=== PATIENT | male | born 1935 | race Caucasian/White ===

== ENCOUNTER 2017-10-12 17:52 | Inpatient (IN) | payer MEDICARE, OTHER, MEDICAID ==
[2017-10-12] MEDS: ONDANSETRON 4 MG INJ IV (21:23)
[2017-10-12] MEDS: HALOPERIDOL 5 MG INJ IM (21:49)
[2017-10-12 22:22] LABS: ADD MAN DIFF? NO
[2017-10-12 22:32] LABS: WHITE BLOOD COUNT 9.2 10^3/ul (4.8-10.8)
[2017-10-12 22:32] LABS: HEMATOCRIT 25.2 % (42.0-52.0); MEAN CORPUSCULAR HEMOGLOBIN 27.7 pg (29.0-33.0); MEAN CORPUSCULAR HGB CONC 35.7 g/dl (32.0-37.0); MEAN CORPUSCULAR VOLUME 77.5 fl (82.0-101.0); PLATELET COUNT 78 10^3/UL (140-415); RED BLOOD COUNT 3.25 10^6/ul (4.70-6.10); RED CELL DISTRIBUTION WIDTH 14.6 % (11.5-14.5)
[2017-10-12 22:33] LABS: ABNORMAL IP MESSAGE 1; POSITIVE DIFF @See below
[2017-10-12 22:45] LABS: INR 1.23; PROTIME 15.7 Sec (11.9-14.9); PT RATIO 1.2
[2017-10-12 22:46] LABS: ALANINE AMINOTRANSFERASE 50 IU/L (13-69); ALBUMIN 2.9 g/dl (3.3-4.9); ALBUMIN/GLOBULIN RATIO 0.72; ALKALINE PHOSPHATASE 315 IU/L (42-121); ANION GAP 14 (8-16); ASPARTATE AMINO TRANSFERASE 70 IU/L (15-46); BILIRUBIN,INDIRECT 0.9 mg/dl (0-1.1); BILIRUBIN,TOTAL 1.3 mg/dl (0.2-1.3); BLOOD UREA NITROGEN 48 mg/dl (7-20); CALCIUM 8.3 mg/dl (8.4-10.2); CARBON DIOXIDE 31 mmol/L (21-31); CHLORIDE 97 mmol/L (97-110); GLUCOSE 256 mg/dl (70-220); LIPASE 28 U/L (23-300); PARTIAL THROMBOPLASTIN TIME 34.9 Sec (25.0-35.0); SODIUM 137 mmol/L (135-144); TOTAL PROTEIN 6.9 g/dl (6.1-8.1)
[2017-10-12 22:57] LABS: TROPONIN-I 0.056 ng/ml (0.00-0.12)
[2017-10-12 23:31] LABS: ADD UMIC YES; UR ASCORBIC ACID NEGATIVE (NEGATIVE); UR BILIRUBIN (Dip) NEGATIVE (NEGATIVE); UR BLOOD (Dip) NEGATIVE (NEGATIVE); UR CLARITY CLEAR (CLEAR); UR COLOR YELLOW (YELLOW); UR GLUCOSE (Dip) 3+ mg/dL (NEGATIVE); UR KETONES (Dip) NEGATIVE (NEGATIVE); UR LEUKOCYTE ESTERASE (Dip) NEGATIVE Leu/ul (NEGATIVE); UR NITRITE (Dip) NEGATIVE (NEGATIVE); UR RBC 1 /HPF (0-5); UR TOTAL PROTEIN (Dip) 2+ mg/dl (NEGATIVE); UR UROBILINOGEN (Dip) 2+ mg/dL (NEGATIVE); UR WBC 6 /HPF (0-5)
[2017-10-13] MEDS ORDERED: NACL 0.9% 3 ML SYG IV (01:30)
[2017-10-13] MEDS ORDERED: HALOPERIDOL 5 MG INJ IV (01:30)
[2017-10-13] MEDS ORDERED: ONDANSETRON 4 MG INJ IV ×2 (01:30)
[2017-10-13] MEDS ORDERED: ACETAMINOPHEN 325 MG TAB PO (01:30)
[2017-10-13] MEDS ORDERED: GLUCOSE GEL 15 GRAM TUBE PO ×2 (02:00)
[2017-10-13] MEDS ORDERED: GLUCAGON 1 MG INJ IM (02:00)
[2017-10-13] MEDS ORDERED: GLUCOSE GEL 15 GRAM TUBE BUCCAL (02:00)
[2017-10-13] MEDS: ACCU-CHEK XX (02:11)
[2017-10-13] MEDS: LEVOFLOXACIN 250 MG TAB PO (02:23)
[2017-10-13] MEDS: PANTOPRAZOLE (EC) 40 MG TAB PO (06:00)
[2017-10-13] MEDS: LEVOTHYROXINE 125 MCG TAB PO (06:01)
[2017-10-13 06:07] LABS: ADD MAN DIFF? NO
[2017-10-13 06:46] LABS: WHITE BLOOD COUNT 8.1 10^3/ul (4.8-10.8)
[2017-10-13 06:46] LABS: ABNORMAL IP MESSAGE 1; HEMATOCRIT 22.9 % (42.0-52.0); HEMOGLOBIN 8.5 g/dl (14.0-18.0); MEAN CORPUSCULAR HEMOGLOBIN 28.5 pg (29.0-33.0); MEAN CORPUSCULAR HGB CONC 37.1 g/dl (32.0-37.0); MEAN CORPUSCULAR VOLUME 76.8 fl (82.0-101.0); MEAN PLATELET VOLUME 11.5 fl (7.4-10.4); PLATELET COUNT 78 10^3/UL (140-415); POSITIVE DIFF @See below; RED BLOOD COUNT 2.98 10^6/ul (4.70-6.10); RED CELL DISTRIBUTION WIDTH 14.4 % (11.5-14.5)
[2017-10-13 06:52] LABS: IRON 26 ug/dl (35-150)
[2017-10-13 06:54] LABS: ALANINE AMINOTRANSFERASE 45 IU/L (13-69); ALBUMIN 2.3 g/dl (3.3-4.9); ALBUMIN/GLOBULIN RATIO 0.62; ALKALINE PHOSPHATASE 233 IU/L (42-121); ANION GAP 14 (8-16); ASPARTATE AMINO TRANSFERASE 45 IU/L (15-46); BILIRUBIN,INDIRECT 0.9 mg/dl (0-1.1); BILIRUBIN,TOTAL 1.1 mg/dl (0.2-1.3); BLOOD UREA NITROGEN 54 mg/dl (7-20); CARBON DIOXIDE 32 mmol/L (21-31); CHLORIDE 97 mmol/L (97-110); CHOL/HDL RATIO 5.9 RATIO; CHOLESTEROL 89 mg/dl (100-200); CREATININE 3.86 mg/dl (0.61-1.24); GLUCOSE 207 mg/dl (70-220); HDL CHOLESTEROL 15 mg/dl (31-75); LDL CHOLESTEROL,CALCULATED 61 mg/dl; POTASSIUM 4.6 mmol/L (3.5-5.1); SODIUM 138 mmol/L (135-144); TRIGLYCERIDES 67 mg/dl (0-149)
[2017-10-13 07:01] LABS: % IRON SATURATION 18 % SAT (22-52); TOTAL IRON BINDING CAPACITY 142 ug/dl (241-421)
[2017-10-13 07:16] LABS: HEMOGLOBIN A1C 6.5 % (0-5.9)
[2017-10-13 07:28] LABS: HEPATITIS C VIRAL ANTIBODY NEGATIVE (NEGATIVE)
[2017-10-13 07:34] LABS: AMMONIA < 9 umol/l (9-30)
[2017-10-13] MEDS: SEVELAMER 400 MG TAB PO ×3 (08:15→17:21)
[2017-10-13] MEDS: INSULIN ASPART [NOVOLOG] 3 ML PEN SC ×4 (08:15→20:38)
[2017-10-13] MEDS ORDERED: ASPIRIN 81 MG TAB PO (09:00)
[2017-10-13] MEDS: ALLOPURINOL 100 MG TAB PO (12:12)
[2017-10-13] MEDS: CLOPIDOGREL 75 MG TAB PO (12:12)
[2017-10-13] MEDS: SOD FERRIC GLUC COMPLX 125 MG in SOD CHLORIDE 0.9% 100 ML IVPB (12:14)
[2017-10-13] MEDS: LINAGLIPTIN 5 MG TABLET PO (12:41)
[2017-10-13] MEDS: ASPIRIN 81 MG TAB PO (12:41)
[2017-10-13] MEDS: DUTASTERIDE 0.5 MG CAP PO (13:09)
[2017-10-13] MEDS: CEFEPIME 1GM/50 ML (PMX) 50 ML IVPB (13:19)
[2017-10-13] MEDS ORDERED: PENDING SANTYL ORDER FOR WOUND CARE XX (17:00)
[2017-10-13] MEDS: EPOETIN 10000 UNITS/1 ML INJ (ESRD) SC (17:22)
[2017-10-13 17:58] LABS: HEPATITIS B SURFACE ANTIGEN NEGATIVE (NEGATIVE)
[2017-10-13] MEDS ORDERED: ALBUTEROL/IPRATROPIUM (NEB) 3 ML AMP NEB (18:00)
[2017-10-13 18:36] LABS: ADD MAN DIFF? NO
[2017-10-13 18:38] LABS: WHITE BLOOD COUNT 10.4 10^3/ul (4.8-10.8)
[2017-10-13 18:38] LABS: ABNORMAL IP MESSAGE 1; BASOPHILS % 0.1 % (0.0-2.0); EOSINOPHILS % 0.2 % (0.0-7.0); HEMATOCRIT 22.2 % (42.0-52.0); LYMPHOCYTES # 0.7 10^3/ul (0.8-2.9); MEAN CORPUSCULAR HEMOGLOBIN 28.5 pg (29.0-33.0); MEAN PLATELET VOLUME 11.7 fl (7.4-10.4); MONOCYTE # 0.7 10^3/ul (0.3-0.9); MONOCYTES % 6.8 % (0.0-11.0); NEUTROPHIL # 8.7 10^3/ul (1.6-7.5); NEUTROPHILS % 84.4 % (39.0-77.0); PLATELET COUNT 74 10^3/UL (140-415); POSITIVE DIFF @See below; RED BLOOD COUNT 2.81 10^6/ul (4.70-6.10); RED CELL DISTRIBUTION WIDTH 14.6 % (11.5-14.5)
[2017-10-13] MEDS ORDERED: COLLAGENASE 30 GM TUBE TOP (19:00)
[2017-10-13] MEDS: ALBUTEROL/IPRATROPIUM (NEB) 3 ML AMP NEB (20:14)
[2017-10-13] MEDS: TAMSULOSIN (SR) 0.4 MG CAP PO (20:32)
[2017-10-13] MEDS: COLLAGENASE 30 GM TUBE TOP (20:33)
[2017-10-14] MEDS: ALBUTEROL/IPRATROPIUM (NEB) 3 ML AMP NEB ×6 (00:11→20:01)
[2017-10-14] MEDS: ACCU-CHEK XX (01:53)
[2017-10-14] MEDS: LEVOTHYROXINE 125 MCG TAB PO (05:57)
[2017-10-14] MEDS: PANTOPRAZOLE (EC) 40 MG TAB PO (05:57)
[2017-10-14 06:08] LABS: ADD MAN DIFF? NO
[2017-10-14 06:19] LABS: ABNORMAL IP MESSAGE 1; BASOPHILS % 0.1 % (0.0-2.0); EOSINOPHILS % 0.1 % (0.0-7.0); HEMATOCRIT 21.1 % (42.0-52.0); HEMOGLOBIN 7.7 g/dl (14.0-18.0); LYMPHOCYTES # 0.7 10^3/ul (0.8-2.9); LYMPHOCYTES % 8.4 % (15.0-51.0); MEAN CORPUSCULAR HEMOGLOBIN 28.4 pg (29.0-33.0); MEAN CORPUSCULAR HGB CONC 36.5 g/dl (32.0-37.0); MEAN CORPUSCULAR VOLUME 77.9 fl (82.0-101.0); MEAN PLATELET VOLUME 12.1 fl (7.4-10.4); MONOCYTE # 0.6 10^3/ul (0.3-0.9); MONOCYTES % 7.3 % (0.0-11.0); NEUTROPHIL # 7.1 10^3/ul (1.6-7.5); NEUTROPHILS % 82.8 % (39.0-77.0); PLATELET COUNT 87 10^3/UL (140-415); POSITIVE DIFF @See below; RED BLOOD COUNT 2.71 10^6/ul (4.70-6.10); RED CELL DISTRIBUTION WIDTH 14.6 % (11.5-14.5)
[2017-10-14 06:19] LABS: WHITE BLOOD COUNT 8.6 10^3/ul (4.8-10.8)
[2017-10-14 06:52] LABS: ANION GAP 14 (8-16); BLOOD UREA NITROGEN 71 mg/dl (7-20); CALCIUM 7.7 mg/dl (8.4-10.2); CARBON DIOXIDE 30 mmol/L (21-31); CHLORIDE 97 mmol/L (97-110); CREATININE 5.17 mg/dl (0.61-1.24); GLUCOSE 173 mg/dl (70-220); PHOSPHORUS 5.6 mg/dl (2.5-4.9); SODIUM 136 mmol/L (135-144)
[2017-10-14] MEDS: SEVELAMER 400 MG TAB PO ×3 (08:15→17:32)
[2017-10-14] MEDS: INSULIN ASPART [NOVOLOG] 3 ML PEN SC ×4 (08:15→21:18)
[2017-10-14] MEDS ORDERED: VANCOMYCIN IV PER PHARMACY XX ×2 (12:30)
[2017-10-14] MEDS: SOD FERRIC GLUC COMPLX 125 MG in SOD CHLORIDE 0.9% 100 ML IVPB (15:19)
[2017-10-14] MEDS: COLLAGENASE 30 GM TUBE TOP ×2 (15:20)
[2017-10-14] MEDS: ALLOPURINOL 100 MG TAB PO (15:21)
[2017-10-14] MEDS: CLOPIDOGREL 75 MG TAB PO (15:22)
[2017-10-14] MEDS: ASPIRIN 81 MG TAB PO (15:22)
[2017-10-14] MEDS: DUTASTERIDE 0.5 MG CAP PO (15:22)
[2017-10-14] MEDS: LINAGLIPTIN 5 MG TABLET PO (15:22)
[2017-10-14] MEDS: CEFEPIME 1GM/50 ML (PMX) 50 ML IVPB (16:29)
[2017-10-14] MEDS: VANCOMYCIN 1 GM 250 ML IVPB (17:31)
[2017-10-14] MEDS: TAMSULOSIN (SR) 0.4 MG CAP PO (21:12)
[2017-10-14 22:25] LABS: IMMEDIATE SPIN CROSSMATCH 1 1
[2017-10-15] MEDS: ALBUTEROL/IPRATROPIUM (NEB) 3 ML AMP NEB ×6 (00:59→20:20)
[2017-10-15] MEDS: ACCU-CHEK XX (02:00)
[2017-10-15] MEDS: LEVOFLOXACIN 250 MG TAB PO (02:22)
[2017-10-15 05:46] LABS: ADD MAN DIFF? NO
[2017-10-15] MEDS: COLLAGENASE 30 GM TUBE TOP ×4 (05:57→08:12)
[2017-10-15 05:59] LABS: BASOPHILS % 0.2 % (0.0-2.0); EOSINOPHILS % 0.1 % (0.0-7.0); HEMATOCRIT 24.2 % (42.0-52.0); HEMOGLOBIN 8.7 g/dl (14.0-18.0); LYMPHOCYTES # 0.8 10^3/ul (0.8-2.9); LYMPHOCYTES % 6.2 % (15.0-51.0); MEAN CORPUSCULAR HEMOGLOBIN 28.8 pg (29.0-33.0); MEAN CORPUSCULAR VOLUME 80.1 fl (82.0-101.0); MEAN PLATELET VOLUME 12.3 fl (7.4-10.4); MONOCYTE # 0.6 10^3/ul (0.3-0.9); MONOCYTES % 4.7 % (0.0-11.0); NEUTROPHIL # 10.9 10^3/ul (1.6-7.5); NEUTROPHILS % 87.6 % (39.0-77.0); PLATELET COUNT 100 10^3/UL (140-415); RED BLOOD COUNT 3.02 10^6/ul (4.70-6.10); RED CELL DISTRIBUTION WIDTH 15.7 % (11.5-14.5)
[2017-10-15 05:59] LABS: WHITE BLOOD COUNT 12.4 10^3/ul (4.8-10.8)
[2017-10-15] MEDS: LEVOTHYROXINE 125 MCG TAB PO (06:02)
[2017-10-15] MEDS: PANTOPRAZOLE (EC) 40 MG TAB PO (06:02)
[2017-10-15 06:18] LABS: ANION GAP 12 (8-16); BLOOD UREA NITROGEN 43 mg/dl (7-20); CALCIUM 7.4 mg/dl (8.4-10.2); CARBON DIOXIDE 29 mmol/L (21-31); CHLORIDE 100 mmol/L (97-110); CREATININE 3.37 mg/dl (0.61-1.24); GLUCOSE 241 mg/dl (70-220); POTASSIUM 4.5 mmol/L (3.5-5.1); SODIUM 136 mmol/L (135-144)
[2017-10-15 06:20] LABS: PHOSPHORUS 4.9 mg/dl (2.5-4.9)
[2017-10-15 06:20] LABS: MAGNESIUM 1.9 mg/dl (1.7-2.5)
[2017-10-15] MEDS: SEVELAMER 400 MG TAB PO ×3 (08:09→17:13)
[2017-10-15] MEDS: ASPIRIN 81 MG TAB PO (08:10)
[2017-10-15] MEDS: DUTASTERIDE 0.5 MG CAP PO (08:10)
[2017-10-15] MEDS: ALLOPURINOL 100 MG TAB PO (08:12)
[2017-10-15] MEDS: CLOPIDOGREL 75 MG TAB PO (08:12)
[2017-10-15] MEDS: LINAGLIPTIN 5 MG TABLET PO (08:12)
[2017-10-15] MEDS: INSULIN ASPART [NOVOLOG] 3 ML PEN SC ×4 (08:15→20:52)
[2017-10-15] MEDS: SOD FERRIC GLUC COMPLX 125 MG in SOD CHLORIDE 0.9% 100 ML IVPB (10:43)
[2017-10-15] MEDS: CEFEPIME 1GM/50 ML (PMX) 50 ML IVPB (15:52)
[2017-10-15] MEDS: EPOETIN 10000 UNITS/1 ML INJ (ESRD) SC (17:07)
[2017-10-15] MEDS: INSULIN DETEMIR [LEVEMIR] 3ML CART SC (20:52)
[2017-10-15] MEDS: TAMSULOSIN (SR) 0.4 MG CAP PO (20:55)
[2017-10-16] MEDS: ALBUTEROL/IPRATROPIUM (NEB) 3 ML AMP NEB ×6 (00:47→21:15)
[2017-10-16] MEDS: ACCU-CHEK XX (01:07)
[2017-10-16 05:30] LABS: ADD MAN DIFF? NO
[2017-10-16 05:41] LABS: WHITE BLOOD COUNT 11.2 10^3/ul (4.8-10.8)
[2017-10-16 05:41] LABS: BASOPHILS % 0.2 % (0.0-2.0); EOSINOPHILS % 0.1 % (0.0-7.0); HEMATOCRIT 24.3 % (42.0-52.0); HEMOGLOBIN 8.7 g/dl (14.0-18.0); LYMPHOCYTES # 0.9 10^3/ul (0.8-2.9); LYMPHOCYTES % 8.1 % (15.0-51.0); MEAN CORPUSCULAR HEMOGLOBIN 28.6 pg (29.0-33.0); MEAN CORPUSCULAR HGB CONC 35.8 g/dl (32.0-37.0); MEAN CORPUSCULAR VOLUME 79.9 fl (82.0-101.0); MEAN PLATELET VOLUME 11.4 fl (7.4-10.4); MONOCYTE # 0.8 10^3/ul (0.3-0.9); MONOCYTES % 6.9 % (0.0-11.0); NEUTROPHIL # 9.3 10^3/ul (1.6-7.5); NEUTROPHILS % 83.4 % (39.0-77.0); PLATELET COUNT 108 10^3/UL (140-415); POSITIVE DIFF @See below; RED BLOOD COUNT 3.04 10^6/ul (4.70-6.10); RED CELL DISTRIBUTION WIDTH 15.6 % (11.5-14.5)
[2017-10-16] MEDS: LEVOTHYROXINE 125 MCG TAB PO (06:02)
[2017-10-16] MEDS: PANTOPRAZOLE (EC) 40 MG TAB PO (06:02)
[2017-10-16 06:27] LABS: VANCOMYCIN,RANDOM 9.3 ug/ml
[2017-10-16 06:28] LABS: PHOSPHORUS 4.8 mg/dl (2.5-4.9)
[2017-10-16 06:28] LABS: MAGNESIUM 1.8 mg/dl (1.7-2.5)
[2017-10-16 06:31] LABS: ANION GAP 13 (8-16); BLOOD UREA NITROGEN 56 mg/dl (7-20); CALCIUM 7.7 mg/dl (8.4-10.2); CARBON DIOXIDE 26 mmol/L (21-31); CHLORIDE 101 mmol/L (97-110); CREATININE 4.48 mg/dl (0.61-1.24); GLUCOSE 61 mg/dl (70-220); POTASSIUM 4.2 mmol/L (3.5-5.1); SODIUM 136 mmol/L (135-144)
[2017-10-16] MEDS: INSULIN ASPART [NOVOLOG] 3 ML PEN SC ×4 (08:15→20:40)
[2017-10-16] MEDS: COLLAGENASE 30 GM TUBE TOP ×2 (09:00)
[2017-10-16] MEDS: ALLOPURINOL 100 MG TAB PO (09:02)
[2017-10-16] MEDS: ASPIRIN 81 MG TAB PO (09:02)
[2017-10-16] MEDS: DUTASTERIDE 0.5 MG CAP PO (09:02)
[2017-10-16] MEDS: SEVELAMER 400 MG TAB PO ×3 (09:02→17:42)
[2017-10-16] MEDS: CLOPIDOGREL 75 MG TAB PO (09:02)
[2017-10-16] MEDS: LINAGLIPTIN 5 MG TABLET PO (09:05)
[2017-10-16] MEDS: VANCOMYCIN 1 GM 250 ML IVPB (09:07)
[2017-10-16] MEDS: SOD FERRIC GLUC COMPLX 125 MG in SOD CHLORIDE 0.9% 100 ML IVPB (11:25)
[2017-10-16] MEDS: CEFEPIME 1GM/50 ML (PMX) 50 ML IVPB (16:38)
[2017-10-16] MEDS: TAMSULOSIN (SR) 0.4 MG CAP PO (20:37)
[2017-10-16] MEDS: INSULIN DETEMIR [LEVEMIR] 3ML CART SC (20:40)
[2017-10-17] MEDS: ACCU-CHEK XX (01:41)
[2017-10-17] MEDS: ALBUTEROL/IPRATROPIUM (NEB) 3 ML AMP NEB ×6 (01:53→20:30)
[2017-10-17] MEDS: LEVOFLOXACIN 250 MG TAB PO (02:09)
[2017-10-17 05:53] LABS: ADD MAN DIFF? NO
[2017-10-17 05:59] LABS: WHITE BLOOD COUNT 9.1 10^3/ul (4.8-10.8)
[2017-10-17 05:59] LABS: BASOPHILS % 0.1 % (0.0-2.0); EOSINOPHILS % 0.4 % (0.0-7.0); HEMATOCRIT 21.2 % (42.0-52.0); HEMOGLOBIN 7.6 g/dl (14.0-18.0); LYMPHOCYTES # 0.8 10^3/ul (0.8-2.9); LYMPHOCYTES % 8.9 % (15.0-51.0); MEAN CORPUSCULAR HEMOGLOBIN 28.6 pg (29.0-33.0); MEAN CORPUSCULAR HGB CONC 35.8 g/dl (32.0-37.0); MEAN CORPUSCULAR VOLUME 79.7 fl (82.0-101.0); MEAN PLATELET VOLUME 12.1 fl (7.4-10.4); MONOCYTE # 0.7 10^3/ul (0.3-0.9); NEUTROPHIL # 7.4 10^3/ul (1.6-7.5); NEUTROPHILS % 81.1 % (39.0-77.0); PLATELET COUNT 125 10^3/UL (140-415); RED BLOOD COUNT 2.66 10^6/ul (4.70-6.10); RED CELL DISTRIBUTION WIDTH 16.2 % (11.5-14.5)
[2017-10-17 06:16] LABS: PHOSPHORUS 4.7 mg/dl (2.5-4.9)
[2017-10-17 06:16] LABS: MAGNESIUM 1.8 mg/dl (1.7-2.5)
[2017-10-17 06:20] LABS: ANION GAP 12 (8-16); BLOOD UREA NITROGEN 68 mg/dl (7-20); CALCIUM 7.6 mg/dl (8.4-10.2); CARBON DIOXIDE 24 mmol/L (21-31); CHLORIDE 101 mmol/L (97-110); CREATININE 5.37 mg/dl (0.61-1.24); GLUCOSE 167 mg/dl (70-220); POTASSIUM 4.1 mmol/L (3.5-5.1); SODIUM 133 mmol/L (135-144)
[2017-10-17] MEDS: PANTOPRAZOLE (EC) 40 MG TAB PO (06:34)
[2017-10-17] MEDS: LEVOTHYROXINE 125 MCG TAB PO (06:34)
[2017-10-17] MEDS: SEVELAMER 400 MG TAB PO ×3 (08:25→18:34)
[2017-10-17] MEDS: DUTASTERIDE 0.5 MG CAP PO (08:25)
[2017-10-17] MEDS: LINAGLIPTIN 5 MG TABLET PO (08:27)
[2017-10-17] MEDS: CLOPIDOGREL 75 MG TAB PO (08:27)
[2017-10-17] MEDS: ALLOPURINOL 100 MG TAB PO (08:27)
[2017-10-17] MEDS: COLLAGENASE 30 GM TUBE TOP ×2 (08:28)
[2017-10-17] MEDS: ASPIRIN 81 MG TAB PO (08:28)
[2017-10-17] MEDS: INSULIN ASPART [NOVOLOG] 3 ML PEN SC ×4 (08:32→22:12)
[2017-10-17] MEDS: SOD FERRIC GLUC COMPLX 125 MG in SOD CHLORIDE 0.9% 100 ML IVPB (10:10)
[2017-10-17] MEDS: ALBUMIN HUMAN 25% 100 ML IV (15:35)
[2017-10-17] MEDS: CEFEPIME 1GM/50 ML (PMX) 50 ML IVPB (18:00)
[2017-10-17] MEDS: INSULIN DETEMIR [LEVEMIR] 3ML CART SC (21:00)
[2017-10-17] MEDS: TAMSULOSIN (SR) 0.4 MG CAP PO (21:00)
[2017-10-18] MEDS: ALBUTEROL/IPRATROPIUM (NEB) 3 ML AMP NEB ×6 (01:31→20:39)
[2017-10-18] MEDS: ACCU-CHEK XX (02:20)
[2017-10-18] MEDS: PANTOPRAZOLE (EC) 40 MG TAB PO (06:00)
[2017-10-18 06:04] LABS: ADD MAN DIFF? NO
[2017-10-18] MEDS: LEVOTHYROXINE 125 MCG TAB PO (06:29)
[2017-10-18 06:40] LABS: ANION GAP 10 (8-16); BLOOD UREA NITROGEN 34 mg/dl (7-20); CARBON DIOXIDE 27 mmol/L (21-31); CHLORIDE 104 mmol/L (97-110); CREATININE 3.32 mg/dl (0.61-1.24); GLUCOSE 221 mg/dl (70-220); POTASSIUM 4.3 mmol/L (3.5-5.1); SODIUM 137 mmol/L (135-144)
[2017-10-18 07:01] LABS: BASOPHILS % 0.3 % (0.0-2.0); EOSINOPHILS % 0.1 % (0.0-7.0); HEMATOCRIT 22.9 % (42.0-52.0); HEMOGLOBIN 8.3 g/dl (14.0-18.0); LYMPHOCYTES # 0.9 10^3/ul (0.8-2.9); LYMPHOCYTES % 7.7 % (15.0-51.0); MEAN CORPUSCULAR HEMOGLOBIN 29.3 pg (29.0-33.0); MEAN CORPUSCULAR HGB CONC 36.2 g/dl (32.0-37.0); MEAN CORPUSCULAR VOLUME 80.9 fl (82.0-101.0); MEAN PLATELET VOLUME 11.5 fl (7.4-10.4); MONOCYTES % 8.2 % (0.0-11.0); NEUTROPHIL # 9.3 10^3/ul (1.6-7.5); NEUTROPHILS % 79.8 % (39.0-77.0); NUCLEATED RED BLOOD CELLS% 0.2 /100WBC (0.0-0.0); PLATELET COUNT 150 10^3/UL (140-415); RED BLOOD COUNT 2.83 10^6/ul (4.70-6.10); RED CELL DISTRIBUTION WIDTH 16.5 % (11.5-14.5)
[2017-10-18 07:01] LABS: WHITE BLOOD COUNT 11.6 10^3/ul (4.8-10.8)
[2017-10-18 07:24] LABS: MAGNESIUM 1.7 mg/dl (1.7-2.5)
[2017-10-18 07:24] LABS: PHOSPHORUS 3.4 mg/dl (2.5-4.9)
[2017-10-18] MEDS: INSULIN ASPART [NOVOLOG] 3 ML PEN SC ×4 (08:38→21:11)
[2017-10-18] MEDS: DUTASTERIDE 0.5 MG CAP PO (08:46)
[2017-10-18] MEDS: SEVELAMER 400 MG TAB PO ×3 (08:46→17:07)
[2017-10-18] MEDS: CLOPIDOGREL 75 MG TAB PO (08:46)
[2017-10-18] MEDS: LINAGLIPTIN 5 MG TABLET PO (08:47)
[2017-10-18] MEDS: ASPIRIN 81 MG TAB PO (08:47)
[2017-10-18] MEDS: ALLOPURINOL 100 MG TAB PO (08:47)
[2017-10-18] MEDS: COLLAGENASE 30 GM TUBE TOP ×2 (08:49→08:50)
[2017-10-18] MEDS: CEFEPIME 1GM/50 ML (PMX) 50 ML IVPB (16:18)
[2017-10-18] MEDS: FLUCONAZOLE 100 MG TAB PO (16:18)
[2017-10-18] MEDS: EPOETIN 10000 UNITS/1 ML INJ (ESRD) SC (17:09)
[2017-10-18 19:55] LABS: NIL 0.04 IU/mL; QUANTIFERON(R)-TB GOLD NEGATIVE (NEGATIVE); TB-NIL <0.00 IU/mL
[2017-10-18] MEDS: MEGESTROL (40 MG/ML) 10ML CUP PO (21:07)
[2017-10-18] MEDS: TAMSULOSIN (SR) 0.4 MG CAP PO (21:07)
[2017-10-18] MEDS: INSULIN DETEMIR [LEVEMIR] 3ML CART SC (21:11)
[2017-10-19] MEDS: ALBUTEROL/IPRATROPIUM (NEB) 3 ML AMP NEB ×6 (01:35→20:24)
[2017-10-19] MEDS: LEVOFLOXACIN 250 MG TAB PO (01:54)
[2017-10-19] MEDS: ACCU-CHEK XX ×2 (01:55→21:47)
[2017-10-19 05:46] LABS: ADD MAN DIFF? NO
[2017-10-19 06:03] LABS: BASOPHILS % 0.2 % (0.0-2.0); EOSINOPHILS # 0.1 10^3/ul (0.0-0.5); EOSINOPHILS % 0.7 % (0.0-7.0); HEMOGLOBIN 7.7 g/dl (14.0-18.0); LYMPHOCYTES # 0.8 10^3/ul (0.8-2.9); MEAN CORPUSCULAR HEMOGLOBIN 29.4 pg (29.0-33.0); MEAN PLATELET VOLUME 11.6 fl (7.4-10.4); MONOCYTES % 10.6 % (0.0-11.0); NEUTROPHIL # 6.9 10^3/ul (1.6-7.5); NEUTROPHILS % 76.4 % (39.0-77.0); PLATELET COUNT 155 10^3/UL (140-415); RED BLOOD COUNT 2.62 10^6/ul (4.70-6.10); RED CELL DISTRIBUTION WIDTH 17.3 % (11.5-14.5)
[2017-10-19] MEDS: LEVOTHYROXINE 125 MCG TAB PO (06:29)
[2017-10-19] MEDS: PANTOPRAZOLE (EC) 40 MG TAB PO (06:29)
[2017-10-19 07:02] LABS: VANCOMYCIN,RANDOM 11.8 ug/ml
[2017-10-19 07:03] LABS: ANION GAP 9 (8-16); BLOOD UREA NITROGEN 49 mg/dl (7-20); CALCIUM 8.1 mg/dl (8.4-10.2); CARBON DIOXIDE 30 mmol/L (21-31); CHLORIDE 102 mmol/L (97-110); CREATININE 4.64 mg/dl (0.61-1.24); GLUCOSE 207 mg/dl (70-220); SODIUM 137 mmol/L (135-144)
[2017-10-19] MEDS: DUTASTERIDE 0.5 MG CAP PO (08:45)
[2017-10-19] MEDS: MEGESTROL (40 MG/ML) 10ML CUP PO ×2 (08:45→21:27)
[2017-10-19] MEDS: SEVELAMER 400 MG TAB PO ×3 (08:45→18:20)
[2017-10-19] MEDS: ALLOPURINOL 100 MG TAB PO (08:45)
[2017-10-19] MEDS: ASPIRIN 81 MG TAB PO (08:45)
[2017-10-19] MEDS: FLUCONAZOLE 100 MG TAB PO (08:45)
[2017-10-19] MEDS: CLOPIDOGREL 75 MG TAB PO (08:45)
[2017-10-19] MEDS: LINAGLIPTIN 5 MG TABLET PO (08:45)
[2017-10-19] MEDS: COLLAGENASE 30 GM TUBE TOP ×2 (09:00→09:14)
[2017-10-19] MEDS: INSULIN ASPART [NOVOLOG] 3 ML PEN SC ×4 (09:12→21:00)
[2017-10-19] MEDS: VANCOMYCIN 1 GM 250 ML IVPB (12:13)
[2017-10-19 17:05] LABS: IMMEDIATE SPIN CROSSMATCH 1 1
[2017-10-19] MEDS: CEFEPIME 1GM/50 ML (PMX) 50 ML IVPB (17:12)
[2017-10-19] MEDS: MEROPENEM 500MG/50 ML (PMX) 50 ML IVPB (21:27)
[2017-10-19] MEDS: TAMSULOSIN (SR) 0.4 MG CAP PO (21:27)
[2017-10-19] MEDS: INSULIN DETEMIR [LEVEMIR] 3ML CART SC (21:46)
[2017-10-20] MEDS: ALBUTEROL/IPRATROPIUM (NEB) 3 ML AMP NEB ×6 (00:22→20:23)
[2017-10-20 05:33] LABS: ADD MAN DIFF? NO
[2017-10-20 05:40] LABS: BASOPHILS % 0.3 % (0.0-2.0); EOSINOPHILS # 0.1 10^3/ul (0.0-0.5); EOSINOPHILS % 0.7 % (0.0-7.0); HEMATOCRIT 26.8 % (42.0-52.0); HEMOGLOBIN 9.8 g/dl (14.0-18.0); LYMPHOCYTES # 0.9 10^3/ul (0.8-2.9); LYMPHOCYTES % 7.6 % (15.0-51.0); MEAN CORPUSCULAR HEMOGLOBIN 29.6 pg (29.0-33.0); MEAN CORPUSCULAR HGB CONC 36.6 g/dl (32.0-37.0); MEAN PLATELET VOLUME 11.3 fl (7.4-10.4); MONOCYTE # 1.2 10^3/ul (0.3-0.9); MONOCYTES % 10.7 % (0.0-11.0); NEUTROPHIL # 8.6 10^3/ul (1.6-7.5); NEUTROPHILS % 75.8 % (39.0-77.0); PLATELET COUNT 130 10^3/UL (140-415); RED BLOOD COUNT 3.31 10^6/ul (4.70-6.10); RED CELL DISTRIBUTION WIDTH 16.7 % (11.5-14.5)
[2017-10-20 05:40] LABS: WHITE BLOOD COUNT 11.4 10^3/ul (4.8-10.8)
[2017-10-20] MEDS: LEVOTHYROXINE 125 MCG TAB PO (06:21)
[2017-10-20] MEDS: PANTOPRAZOLE (EC) 40 MG TAB PO (06:21)
[2017-10-20 06:45] LABS: PHOSPHORUS 2.2 mg/dl (2.5-4.9)
[2017-10-20 06:45] LABS: LACTATE DEHYDROGENASE 457 IU/L (313-618); MAGNESIUM 1.8 mg/dl (1.7-2.5)
[2017-10-20 07:06] LABS: ANION GAP 12 (8-16); BLOOD UREA NITROGEN 34 mg/dl (7-20); CALCIUM 8.3 mg/dl (8.4-10.2); CARBON DIOXIDE 31 mmol/L (21-31); CHLORIDE 102 mmol/L (97-110); GLUCOSE 181 mg/dl (70-220); POTASSIUM 3.7 mmol/L (3.5-5.1); SODIUM 141 mmol/L (135-144)
[2017-10-20] MEDS: INSULIN ASPART [NOVOLOG] 3 ML PEN SC ×4 (07:58→21:24)
[2017-10-20] MEDS: SEVELAMER 400 MG TAB PO ×2 (07:59→12:12)
[2017-10-20] MEDS: COLLAGENASE 30 GM TUBE TOP ×2 (09:00→09:22)
[2017-10-20] MEDS: ASPIRIN 81 MG TAB PO (09:20)
[2017-10-20] MEDS: DUTASTERIDE 0.5 MG CAP PO (09:20)
[2017-10-20] MEDS: LINAGLIPTIN 5 MG TABLET PO (09:20)
[2017-10-20] MEDS: ALLOPURINOL 100 MG TAB PO (09:20)
[2017-10-20] MEDS: MEGESTROL (40 MG/ML) 10ML CUP PO ×2 (09:20→21:03)
[2017-10-20] MEDS: CLOPIDOGREL 75 MG TAB PO (09:20)
[2017-10-20] MEDS: FLUCONAZOLE 100 MG TAB PO (09:20)
[2017-10-20] MEDS: EPOETIN 10000 UNITS/1 ML INJ (ESRD) SC (17:44)
[2017-10-20] MEDS: MEROPENEM 500MG/50 ML (PMX) 50 ML IVPB (21:02)
[2017-10-20] MEDS: TAMSULOSIN (SR) 0.4 MG CAP PO (21:03)
[2017-10-20] MEDS: GUAIFENESIN/CODEINE 5ML CUP PO (21:03)
[2017-10-20] MEDS: INSULIN DETEMIR [LEVEMIR] 3ML CART SC (21:24)
[2017-10-21] MEDS: ALBUTEROL/IPRATROPIUM (NEB) 3 ML AMP NEB ×6 (00:14→20:10)
[2017-10-21] MEDS: ACCU-CHEK XX (02:00)
[2017-10-21] MEDS: GUAIFENESIN/CODEINE 5ML CUP PO ×4 (02:17→22:25)
[2017-10-21 06:11] LABS: ADD MAN DIFF? NO
[2017-10-21] MEDS: LEVOTHYROXINE 125 MCG TAB PO (06:19)
[2017-10-21] MEDS: PANTOPRAZOLE (EC) 40 MG TAB PO (06:19)
[2017-10-21 06:29] LABS: WHITE BLOOD COUNT 11.7 10^3/ul (4.8-10.8)
[2017-10-21 06:29] LABS: ABNORMAL IP MESSAGE 1; BASOPHIL # 0.1 10^3/ul (0.0-0.1); BASOPHILS % 0.5 % (0.0-2.0); EOSINOPHILS # 0.1 10^3/ul (0.0-0.5); EOSINOPHILS % 0.5 % (0.0-7.0); HEMATOCRIT 26.9 % (42.0-52.0); HEMOGLOBIN 9.7 g/dl (14.0-18.0); LYMPHOCYTES % 8.5 % (15.0-51.0); MEAN CORPUSCULAR HEMOGLOBIN 29.3 pg (29.0-33.0); MEAN CORPUSCULAR HGB CONC 36.1 g/dl (32.0-37.0); MEAN CORPUSCULAR VOLUME 81.3 fl (82.0-101.0); MONOCYTE # 1.2 10^3/ul (0.3-0.9); NEUTROPHIL # 8.7 10^3/ul (1.6-7.5); NEUTROPHILS % 74.8 % (39.0-77.0); PLATELET COUNT 124 10^3/UL (140-415); POSITIVE DIFF @See below; RED BLOOD COUNT 3.31 10^6/ul (4.70-6.10)
[2017-10-21 07:08] LABS: MAGNESIUM 1.8 mg/dl (1.7-2.5)
[2017-10-21 07:08] LABS: PHOSPHORUS 2.5 mg/dl (2.5-4.9)
[2017-10-21 07:28] LABS: ANION GAP 9 (8-16); BLOOD UREA NITROGEN 59 mg/dl (7-20); CALCIUM 8.7 mg/dl (8.4-10.2); CARBON DIOXIDE 31 mmol/L (21-31); CHLORIDE 101 mmol/L (97-110); CREATININE 4.08 mg/dl (0.61-1.24); GLUCOSE 163 mg/dl (70-220); SODIUM 137 mmol/L (135-144)
[2017-10-21] MEDS: INSULIN ASPART [NOVOLOG] 3 ML PEN SC ×4 (08:08→23:10)
[2017-10-21] MEDS: COLLAGENASE 30 GM TUBE TOP ×2 (09:00)
[2017-10-21] MEDS: FLUCONAZOLE 100 MG TAB PO (09:36)
[2017-10-21] MEDS: ASPIRIN 81 MG TAB PO (09:36)
[2017-10-21] MEDS: CLOPIDOGREL 75 MG TAB PO (09:36)
[2017-10-21] MEDS: MEGESTROL (40 MG/ML) 10ML CUP PO ×2 (09:36→22:26)
[2017-10-21] MEDS: ALLOPURINOL 100 MG TAB PO (09:37)
[2017-10-21] MEDS: LINAGLIPTIN 5 MG TABLET PO (09:37)
[2017-10-21] MEDS: DUTASTERIDE 0.5 MG CAP PO (09:43)
[2017-10-21] MEDS: TAMSULOSIN (SR) 0.4 MG CAP PO (22:25)
[2017-10-21] MEDS: MEROPENEM 500MG/50 ML (PMX) 50 ML IVPB (22:26)
[2017-10-21] MEDS: INSULIN DETEMIR [LEVEMIR] 3ML CART SC (23:10)
[2017-10-22] MEDS: ALBUTEROL/IPRATROPIUM (NEB) 3 ML AMP NEB ×6 (00:43→20:35)
[2017-10-22] MEDS: ACCU-CHEK XX (02:00)
[2017-10-22 06:25] LABS: ADD MAN DIFF? NO
[2017-10-22 06:29] LABS: ABNORMAL IP MESSAGE 1; BASOPHIL # 0.1 10^3/ul (0.0-0.1); BASOPHILS % 0.8 % (0.0-2.0); EOSINOPHILS # 0.1 10^3/ul (0.0-0.5); EOSINOPHILS % 0.5 % (0.0-7.0); HEMATOCRIT 28.5 % (42.0-52.0); HEMOGLOBIN 9.8 g/dl (14.0-18.0); LYMPHOCYTES # 0.9 10^3/ul (0.8-2.9); LYMPHOCYTES % 7.1 % (15.0-51.0); MEAN CORPUSCULAR HEMOGLOBIN 28.5 pg (29.0-33.0); MEAN CORPUSCULAR HGB CONC 34.4 g/dl (32.0-37.0); MEAN CORPUSCULAR VOLUME 82.8 fl (82.0-101.0); MEAN PLATELET VOLUME 11.5 fl (7.4-10.4); MONOCYTE # 1.4 10^3/ul (0.3-0.9); MONOCYTES % 11.1 % (0.0-11.0); NEUTROPHIL # 9.1 10^3/ul (1.6-7.5); NEUTROPHILS % 74.2 % (39.0-77.0); PLATELET COUNT 148 10^3/UL (140-415); POSITIVE DIFF @See below; RED BLOOD COUNT 3.44 10^6/ul (4.70-6.10)
[2017-10-22 06:29] LABS: WHITE BLOOD COUNT 12.2 10^3/ul (4.8-10.8)
[2017-10-22] MEDS: PANTOPRAZOLE (EC) 40 MG TAB PO (06:33)
[2017-10-22] MEDS: LEVOTHYROXINE 125 MCG TAB PO (06:33)
[2017-10-22 07:14] LABS: ANION GAP 13 (8-16); BLOOD UREA NITROGEN 38 mg/dl (7-20); CALCIUM 8.2 mg/dl (8.4-10.2); CARBON DIOXIDE 31 mmol/L (21-31); CHLORIDE 104 mmol/L (97-110); CREATININE 2.84 mg/dl (0.61-1.24); GLUCOSE 188 mg/dl (70-220); MAGNESIUM 1.8 mg/dl (1.7-2.5); PHOSPHORUS 2.7 mg/dl (2.5-4.9); POTASSIUM 4.7 mmol/L (3.5-5.1); SODIUM 143 mmol/L (135-144)
[2017-10-22] MEDS: INSULIN ASPART [NOVOLOG] 3 ML PEN SC ×4 (08:10→21:23)
[2017-10-22] MEDS: COLLAGENASE 30 GM TUBE TOP ×2 (09:00)
[2017-10-22] MEDS: CLOPIDOGREL 75 MG TAB PO (09:24)
[2017-10-22] MEDS: DUTASTERIDE 0.5 MG CAP PO (09:24)
[2017-10-22] MEDS: ALLOPURINOL 100 MG TAB PO (09:24)
[2017-10-22] MEDS: ASPIRIN 81 MG TAB PO (09:24)
[2017-10-22] MEDS: FLUCONAZOLE 100 MG TAB PO (09:24)
[2017-10-22] MEDS: MEGESTROL (40 MG/ML) 10ML CUP PO ×2 (09:24→21:03)
[2017-10-22] MEDS: LINAGLIPTIN 5 MG TABLET PO (09:24)
[2017-10-22] MEDS: MAGNESIUM HYDROXIDE 30ML CUP PO (13:09)
[2017-10-22] MEDS: EPOETIN 10000 UNITS/1 ML INJ (ESRD) SC (17:15)
[2017-10-22] MEDS: TAMSULOSIN (SR) 0.4 MG CAP PO (21:03)
[2017-10-22] MEDS: MEROPENEM 500MG/50 ML (PMX) 50 ML IVPB (21:03)
[2017-10-22] MEDS: INSULIN DETEMIR [LEVEMIR] 3ML CART SC (21:23)
[2017-10-23] MEDS: INSULIN ASPART [NOVOLOG] 3 ML PEN SC ×5 (00:13→21:43)
[2017-10-23] MEDS: ALBUTEROL/IPRATROPIUM (NEB) 3 ML AMP NEB ×6 (00:26→20:38)
[2017-10-23] MEDS: ACCU-CHEK XX (02:00)
[2017-10-23] MEDS: DOCUSATE SODIUM 100 MG CAP PO (07:03)
[2017-10-23] MEDS: LEVOTHYROXINE 125 MCG TAB PO (07:03)
[2017-10-23] MEDS: PANTOPRAZOLE (EC) 40 MG TAB PO (07:03)
[2017-10-23] MEDS: CLOPIDOGREL 75 MG TAB PO (08:27)
[2017-10-23] MEDS: FLUCONAZOLE 100 MG TAB PO (08:27)
[2017-10-23] MEDS: LINAGLIPTIN 5 MG TABLET PO (08:27)
[2017-10-23] MEDS: ALLOPURINOL 100 MG TAB PO (08:27)
[2017-10-23] MEDS: DUTASTERIDE 0.5 MG CAP PO (08:28)
[2017-10-23] MEDS: ASPIRIN 81 MG TAB PO (08:28)
[2017-10-23] MEDS: MEGESTROL (40 MG/ML) 10ML CUP PO ×2 (08:28→21:40)
[2017-10-23] MEDS: COLLAGENASE 30 GM TUBE TOP ×2 (09:00)
[2017-10-23] MEDS: VANCOMYCIN 1 GM 250 ML IVPB (12:14)
[2017-10-23] MEDS: MAGNESIUM HYDROXIDE 30ML CUP PO (18:45)
[2017-10-23] MEDS: TAMSULOSIN (SR) 0.4 MG CAP PO (21:40)
[2017-10-23] MEDS: INSULIN DETEMIR [LEVEMIR] 3ML CART SC (21:43)
[2017-10-23] MEDS: MEROPENEM 500MG/50 ML (PMX) 50 ML IVPB (21:46)
[2017-10-24] MEDS: ALBUTEROL/IPRATROPIUM (NEB) 3 ML AMP NEB ×6 (00:34→21:00)
[2017-10-24] MEDS: ACCU-CHEK XX (02:48)
[2017-10-24 05:36] LABS: ADD MAN DIFF? NO
[2017-10-24 05:47] LABS: WHITE BLOOD COUNT 16.8 10^3/ul (4.8-10.8)
[2017-10-24 05:47] LABS: ABNORMAL IP MESSAGE 1; BASOPHILS % 0.2 % (0.0-2.0); EOSINOPHILS # 0.1 10^3/ul (0.0-0.5); EOSINOPHILS % 0.5 % (0.0-7.0); HEMATOCRIT 28.5 % (42.0-52.0); MEAN CORPUSCULAR HEMOGLOBIN 29.2 pg (29.0-33.0); MEAN CORPUSCULAR HGB CONC 35.1 g/dl (32.0-37.0); MEAN CORPUSCULAR VOLUME 83.3 fl (82.0-101.0); MEAN PLATELET VOLUME 11.9 fl (7.4-10.4); MONOCYTE # 1.3 10^3/ul (0.3-0.9); MONOCYTES % 7.7 % (0.0-11.0); NEUTROPHIL # 13.4 10^3/ul (1.6-7.5); NEUTROPHILS % 79.8 % (39.0-77.0); NUCLEATED RED BLOOD CELLS% 0.1 /100WBC (0.0-0.0); PLATELET COUNT 142 10^3/UL (140-415); POSITIVE DIFF @See below; RED BLOOD COUNT 3.42 10^6/ul (4.70-6.10); RED CELL DISTRIBUTION WIDTH 18.7 % (11.5-14.5)
[2017-10-24] MEDS: LEVOTHYROXINE 125 MCG TAB PO (06:27)
[2017-10-24] MEDS: PANTOPRAZOLE (EC) 40 MG TAB PO (06:27)
[2017-10-24 06:36] LABS: ANION GAP 16 (8-16); BLOOD UREA NITROGEN 83 mg/dl (7-20); CALCIUM 8.5 mg/dl (8.4-10.2); CARBON DIOXIDE 29 mmol/L (21-31); CHLORIDE 102 mmol/L (97-110); CREATININE 5.42 mg/dl (0.61-1.24); GLUCOSE 174 mg/dl (70-220); POTASSIUM 5.6 mmol/L (3.5-5.1); SODIUM 141 mmol/L (135-144)
[2017-10-24 07:01] LABS: PHOSPHORUS 3.6 mg/dl (2.5-4.9)
[2017-10-24 07:01] LABS: MAGNESIUM 2.1 mg/dl (1.7-2.5)
[2017-10-24] MEDS: INSULIN ASPART [NOVOLOG] 3 ML PEN SC ×5 (08:15→22:01)
[2017-10-24] MEDS: ALLOPURINOL 100 MG TAB PO (08:51)
[2017-10-24] MEDS: LINAGLIPTIN 5 MG TABLET PO (08:51)
[2017-10-24] MEDS: MEGESTROL (40 MG/ML) 10ML CUP PO ×2 (08:51→21:36)
[2017-10-24] MEDS: ASPIRIN 81 MG TAB PO (08:51)
[2017-10-24] MEDS: CLOPIDOGREL 75 MG TAB PO (08:52)
[2017-10-24] MEDS: FLUCONAZOLE 100 MG TAB PO (08:52)
[2017-10-24] MEDS: DUTASTERIDE 0.5 MG CAP PO (08:52)
[2017-10-24] MEDS: COLLAGENASE 30 GM TUBE TOP ×2 (09:00)
[2017-10-24] MEDS: ALBUMIN HUMAN 25% 100 ML IV (12:49)
[2017-10-24] MEDS: INSULIN DETEMIR [LEVEMIR] 3ML CART SC ×2 (21:00→22:01)
[2017-10-24] MEDS: DOCUSATE SODIUM 100 MG CAP PO (21:36)
[2017-10-24] MEDS: MEROPENEM 500MG/50 ML (PMX) 50 ML IVPB (21:36)
[2017-10-24] MEDS: TAMSULOSIN (SR) 0.4 MG CAP PO (21:36)
[2017-10-24] MEDS: NA PHOSPHATE/BIPHOS 133 ML ENEMA PR (22:55)
[2017-10-25] MEDS: ALBUTEROL/IPRATROPIUM (NEB) 3 ML AMP NEB ×6 (00:32→21:26)
[2017-10-25] MEDS: ACCU-CHEK XX (02:00)
[2017-10-25 05:46] LABS: ADD MAN DIFF? NO
[2017-10-25 05:55] LABS: WHITE BLOOD COUNT 19.9 10^3/ul (4.8-10.8)
[2017-10-25 05:55] LABS: BASOPHILS % 0.2 % (0.0-2.0); EOSINOPHILS % 0.2 % (0.0-7.0); HEMATOCRIT 27.5 % (42.0-52.0); HEMOGLOBIN 9.4 g/dl (14.0-18.0); LYMPHOCYTES # 0.8 10^3/ul (0.8-2.9); MEAN CORPUSCULAR HEMOGLOBIN 28.5 pg (29.0-33.0); MEAN CORPUSCULAR HGB CONC 34.2 g/dl (32.0-37.0); MEAN CORPUSCULAR VOLUME 83.3 fl (82.0-101.0); MEAN PLATELET VOLUME 12.3 fl (7.4-10.4); MONOCYTES % 4.8 % (0.0-11.0); NEUTROPHIL # 17.2 10^3/ul (1.6-7.5); NEUTROPHILS % 86.6 % (39.0-77.0); NUCLEATED RED BLOOD CELLS% 0.1 /100WBC (0.0-0.0); PLATELET COUNT 151 10^3/UL (140-415); RED CELL DISTRIBUTION WIDTH 18.7 % (11.5-14.5)
[2017-10-25] MEDS: PANTOPRAZOLE (EC) 40 MG TAB PO (06:28)
[2017-10-25] MEDS: LEVOTHYROXINE 125 MCG TAB PO (06:28)
[2017-10-25 06:38] LABS: ANION GAP 17 (8-16); BLOOD UREA NITROGEN 57 mg/dl (7-20); CALCIUM 8.6 mg/dl (8.4-10.2); CARBON DIOXIDE 30 mmol/L (21-31); CHLORIDE 102 mmol/L (97-110); CREATININE 3.71 mg/dl (0.61-1.24); GLUCOSE 87 mg/dl (70-220); MAGNESIUM 2.2 mg/dl (1.7-2.5); POTASSIUM 4.5 mmol/L (3.5-5.1); SODIUM 144 mmol/L (135-144)
[2017-10-25] MEDS: INSULIN ASPART [NOVOLOG] 3 ML PEN SC ×4 (08:01→21:00)
[2017-10-25] MEDS: MEGESTROL (40 MG/ML) 10ML CUP PO ×2 (09:00→20:09)
[2017-10-25] MEDS: ALLOPURINOL 100 MG TAB PO (09:00)
[2017-10-25] MEDS: LINAGLIPTIN 5 MG TABLET PO (09:00)
[2017-10-25] MEDS: COLLAGENASE 30 GM TUBE TOP ×2 (09:00)
[2017-10-25] MEDS: ASPIRIN 81 MG TAB PO (09:00)
[2017-10-25] MEDS: CLOPIDOGREL 75 MG TAB PO (09:00)
[2017-10-25] MEDS: FLUCONAZOLE 100 MG TAB PO (09:00)
[2017-10-25] MEDS: DUTASTERIDE 0.5 MG CAP PO (09:00)
[2017-10-25 09:13] LABS: AADO2 Arterial 111.6 mmHg (7.0-24.0); Arterial Base Excess 5.1 mmol/L (-3.0-3); Arterial Blood Gas Oxygen Sat 90.2 mmHG (95.0-100.0); Arterial COHb 0.1 % (0.0-3.0); Arterial Fraction of Oxyhgb 89.8 % (93.0-99.0); Arterial HCO3 28.3 mmol/L (22.0-26.0); Arterial MetHb 0.3 % (0.0-1.5); MODE NASAL CANNULA; Site Right Brachial
[2017-10-25] MEDS: DEXTROSE 50% 50 ML SYRINGE IV ×2 (09:45→17:27)
[2017-10-25] MEDS: DEXTROSE 5%-0.45% NACL 1,000 ML IV (10:03)
[2017-10-25] MEDS: metroNIDAZOLE 500 MG/NS (PMX) 100 ML IVPB ×3 (13:16→22:18)
[2017-10-25] MEDS: EPOETIN 10000 UNITS/1 ML INJ (ESRD) SC (16:54)
[2017-10-25] MEDS: TAMSULOSIN (SR) 0.4 MG CAP PO (20:09)
[2017-10-25] MEDS ORDERED: INSULIN DETEMIR [LEVEMIR] 3ML CART SC (21:00)
[2017-10-25] MEDS: MEROPENEM 500MG/50 ML (PMX) 50 ML IVPB (21:36)
[2017-10-26] MEDS: ACCU-CHEK XX (02:00)
[2017-10-26] MEDS: ALBUTEROL/IPRATROPIUM (NEB) 3 ML AMP NEB ×6 (03:07→20:46)
[2017-10-26] MEDS: PANTOPRAZOLE (EC) 40 MG TAB PO (04:46)
[2017-10-26] MEDS: LEVOTHYROXINE 125 MCG TAB PO (04:47)
[2017-10-26] MEDS: metroNIDAZOLE 500 MG/NS (PMX) 100 ML IVPB ×3 (05:29→21:02)
[2017-10-26 07:14] LABS: WHITE BLOOD COUNT 26.2 10^3/ul (4.8-10.8)
[2017-10-26 07:14] LABS: ABNORMAL IP MESSAGE 1; HEMATOCRIT 25.7 % (42.0-52.0); MEAN CORPUSCULAR HEMOGLOBIN 28.8 pg (29.0-33.0); MEAN CORPUSCULAR VOLUME 82.4 fl (82.0-101.0); MEAN PLATELET VOLUME 13.6 fl (7.4-10.4); PLATELET COUNT 138 10^3/UL (140-415); POSITIVE DIFF @See below; RED BLOOD COUNT 3.12 10^6/ul (4.70-6.10); RED CELL DISTRIBUTION WIDTH 18.9 % (11.5-14.5)
[2017-10-26 07:21] LABS: ADD MAN DIFF? YES
[2017-10-26] MEDS: DEXTROSE 5%-0.45% NACL 1,000 ML IV (08:14)
[2017-10-26] MEDS: ASPIRIN 81 MG TAB PO (08:27)
[2017-10-26] MEDS: DUTASTERIDE 0.5 MG CAP PO (08:27)
[2017-10-26] MEDS: INSULIN ASPART [NOVOLOG] 3 ML PEN SC ×4 (08:27→20:56)
[2017-10-26] MEDS: LINAGLIPTIN 5 MG TABLET PO (08:28)
[2017-10-26] MEDS: FLUCONAZOLE 100 MG TAB PO (08:28)
[2017-10-26] MEDS: CLOPIDOGREL 75 MG TAB PO (08:28)
[2017-10-26] MEDS: MEGESTROL (40 MG/ML) 10ML CUP PO ×2 (08:28→20:06)
[2017-10-26] MEDS: COLLAGENASE 30 GM TUBE TOP ×2 (08:29)
[2017-10-26] MEDS: ALLOPURINOL 100 MG TAB PO (08:29)
[2017-10-26 08:44] LABS: MAGNESIUM 2.3 mg/dl (1.7-2.5)
[2017-10-26 08:44] LABS: PHOSPHORUS 6.7 mg/dl (2.5-4.9)
[2017-10-26 08:50] LABS: ALANINE AMINOTRANSFERASE 51 IU/L (13-69); ALBUMIN 2.3 g/dl (3.3-4.9); ALBUMIN/GLOBULIN RATIO 0.65; ALKALINE PHOSPHATASE 267 IU/L (42-121); ANION GAP 18 (8-16); ASPARTATE AMINO TRANSFERASE 49 IU/L (15-46); BILIRUBIN,INDIRECT 0.2 mg/dl (0-1.1); BILIRUBIN,TOTAL 0.5 mg/dl (0.2-1.3); BLOOD UREA NITROGEN 73 mg/dl (7-20); CALCIUM 7.7 mg/dl (8.4-10.2); CARBON DIOXIDE 25 mmol/L (21-31); CHLORIDE 102 mmol/L (97-110); GLUCOSE 168 mg/dl (70-220); POTASSIUM 4.5 mmol/L (3.5-5.1); SODIUM 140 mmol/L (135-144); TOTAL PROTEIN 5.8 g/dl (6.1-8.1)
[2017-10-26 09:13] LABS: ANISOCYTOSIS 3+ (0-0); BAND NEUTROPHILS #M 4.9 10^3/ul (0.0-0.6); BAND NEUTROPHILS % (M) 19 % (0-4); BURR CELLS 2+ (0-0); EOSINOPHILS % (M) 3 % (0-7); LYMPHOCYTES #M 1.3 10^3/ul (0.8-2.9); LYMPHOCYTES % (M) 5 % (15-51); MONOCYTE #M 1.8 10^3/ul (0.3-0.9); MONOCYTES % (M) 7 % (0-11); PLATELET ESTIMATE DECREASED; POIKILOCYTOSIS 3+ (0-0); POLYCHROMASIA 3+ (0-0); SEG NEUT #M 18.6 10^3/ul (1.6-7.5); SEGMENTED NEUTROPHILS (M) % 66 % (39-77); SMUDGE%M 4 % (0-0); TARGET CELLS 1+ (0-0)
[2017-10-26] MEDS: SEVELAMER 800 MG TAB PO ×2 (12:15→17:35)
[2017-10-26 14:40] LABS: LACTIC ACID 1.3 mmol/L (0.5-2.0)
[2017-10-26] MEDS: SOD CHLORIDE 0.9% 250 ML IV (15:21)
[2017-10-26] MEDS: LIDOCAINE 1% (MPF) 5 ML VIAL SC (15:30)
[2017-10-26] MEDS: TAMSULOSIN (SR) 0.4 MG CAP PO (20:05)
[2017-10-26] MEDS: MEROPENEM 500MG/50 ML (PMX) 50 ML IVPB (21:52)
[2017-10-26] MEDS ORDERED: DIPHENHYDRAMINE 50 MG INJ (22:15)
[2017-10-26] MEDS: ALBUMIN HUMAN 25% 100 ML IV (23:48)
[2017-10-27] MEDS: ACCU-CHEK XX (01:20)
[2017-10-27] MEDS: ALBUTEROL/IPRATROPIUM (NEB) 3 ML AMP NEB ×6 (02:00→20:33)
[2017-10-27 05:18] LABS: ADD MAN DIFF? NO
[2017-10-27 05:20] LABS: WHITE BLOOD COUNT 21.8 10^3/ul (4.8-10.8)
[2017-10-27 05:20] LABS: ABNORMAL IP MESSAGE 1; BASOPHIL # 0.1 10^3/ul (0.0-0.1); BASOPHILS % 0.4 % (0.0-2.0); EOSINOPHILS % 0.2 % (0.0-7.0); HEMATOCRIT 20.9 % (42.0-52.0); HEMOGLOBIN 7.7 g/dl (14.0-18.0); LYMPHOCYTES # 0.4 10^3/ul (0.8-2.9); LYMPHOCYTES % 1.7 % (15.0-51.0); MEAN CORPUSCULAR HEMOGLOBIN 29.6 pg (29.0-33.0); MEAN CORPUSCULAR HGB CONC 36.8 g/dl (32.0-37.0); MEAN CORPUSCULAR VOLUME 80.4 fl (82.0-101.0); MEAN PLATELET VOLUME 12.9 fl (7.4-10.4); MONOCYTE # 0.9 10^3/ul (0.3-0.9); NEUTROPHIL # 20.1 10^3/ul (1.6-7.5); NEUTROPHILS % 92.1 % (39.0-77.0); NUCLEATED RED BLOOD CELLS% 0.2 /100WBC (0.0-0.0); PLATELET COUNT 145 10^3/UL (140-415); POSITIVE DIFF @See below; RED CELL DISTRIBUTION WIDTH 18.3 % (11.5-14.5)
[2017-10-27 05:41] LABS: PHOSPHORUS 4.5 mg/dl (2.5-4.9)
[2017-10-27 05:41] LABS: MAGNESIUM 2.1 mg/dl (1.7-2.5)
[2017-10-27 05:43] LABS: ANION GAP 19 (8-16); BLOOD UREA NITROGEN 46 mg/dl (7-20); CALCIUM 7.3 mg/dl (8.4-10.2); CARBON DIOXIDE 26 mmol/L (21-31); CHLORIDE 101 mmol/L (97-110); CREATININE 3.54 mg/dl (0.61-1.24); GLUCOSE 151 mg/dl (70-220); POTASSIUM 4.4 mmol/L (3.5-5.1); SODIUM 142 mmol/L (135-144)
[2017-10-27] MEDS: metroNIDAZOLE 500 MG/NS (PMX) 100 ML IVPB ×3 (05:57→22:44)
[2017-10-27] MEDS: DEXTROSE 5%-0.45% NACL 1,000 ML IV (05:58)
[2017-10-27] MEDS: PANTOPRAZOLE (EC) 40 MG TAB PO (05:58)
[2017-10-27] MEDS: LEVOTHYROXINE 125 MCG TAB PO (05:59)
[2017-10-27] MEDS: INSULIN ASPART [NOVOLOG] 3 ML PEN SC ×3 (07:29→17:08)
[2017-10-27] MEDS: ASPIRIN 81 MG TAB PO (08:16)
[2017-10-27] MEDS: MEGESTROL (40 MG/ML) 10ML CUP PO ×2 (08:16→20:49)
[2017-10-27] MEDS: SEVELAMER 800 MG TAB PO ×3 (08:17→17:06)
[2017-10-27] MEDS: ALLOPURINOL 100 MG TAB PO (08:17)
[2017-10-27] MEDS: DUTASTERIDE 0.5 MG CAP PO (08:19)
[2017-10-27] MEDS: COLLAGENASE 30 GM TUBE TOP ×2 (08:20→11:24)
[2017-10-27] MEDS: LINAGLIPTIN 5 MG TABLET PO (08:22)
[2017-10-27] MEDS: FLUCONAZOLE 100 MG TAB PO (08:22)
[2017-10-27] MEDS: CLOPIDOGREL 75 MG TAB PO (08:22)
[2017-10-27 08:27] LABS: AADO2 Arterial 585.9 mmHg (7.0-24.0); Allen Test ACCEPTAB; Arterial Base Excess 0.3 mmol/L (-3.0-3); Arterial Blood Gas Oxygen Sat 96.2 mmHG (95.0-100.0); Arterial COHb 0.1 % (0.0-3.0); Arterial Fraction of Oxyhgb 95.8 % (93.0-99.0); Arterial HCO3 24.4 mmol/L (22.0-26.0); Arterial MetHb 0.3 % (0.0-1.5); Arterial pCO2 37.2 mmhg (35-45); MODE MASK - NRB; Site Right Radial
[2017-10-27 11:58] LABS: VANCOMYCIN,TROUGH 10.2 ug/ml (10.0-20.0)
[2017-10-27] MEDS: VANCOMYCIN 1 GM 250 ML IVPB (12:22)
[2017-10-27] MEDS: LIDOCAINE 1% (MPF) 5 ML VIAL SC (16:30)
[2017-10-27] MEDS: EPOETIN 10000 UNITS/1 ML INJ (ESRD) SC (17:30)
[2017-10-27] MEDS: SOD CHLORIDE 0.9% 100 ML (18:05)
[2017-10-27] MEDS: TAMSULOSIN (SR) 0.4 MG CAP PO (20:49)
[2017-10-27] MEDS: MEROPENEM 500MG/50 ML (PMX) 50 ML IVPB (20:49)
[2017-10-28] MEDS: INSULIN ASPART [NOVOLOG] 3 ML PEN SC ×5 (00:03→23:37)
[2017-10-28] MEDS: ALBUTEROL/IPRATROPIUM (NEB) 3 ML AMP NEB ×6 (01:05→20:43)
[2017-10-28] MEDS: ACCU-CHEK XX (02:00)
[2017-10-28] MEDS: LANSOPRAZOLE 30 MG CAP NGT (05:45)
[2017-10-28] MEDS: metroNIDAZOLE 500 MG/NS (PMX) 100 ML IVPB (05:45)
[2017-10-28 05:49] LABS: ADD MAN DIFF? NO
[2017-10-28 05:59] LABS: WHITE BLOOD COUNT 23.3 10^3/ul (4.8-10.8)
[2017-10-28 05:59] LABS: ABNORMAL IP MESSAGE 1; BASOPHIL # 0.1 10^3/ul (0.0-0.1); BASOPHILS % 0.2 % (0.0-2.0); EOSINOPHILS % 0.1 % (0.0-7.0); HEMATOCRIT 22.3 % (42.0-52.0); HEMOGLOBIN 7.9 g/dl (14.0-18.0); LYMPHOCYTES # 0.8 10^3/ul (0.8-2.9); LYMPHOCYTES % 3.4 % (15.0-51.0); MEAN CORPUSCULAR HEMOGLOBIN 28.3 pg (29.0-33.0); MEAN CORPUSCULAR HGB CONC 35.4 g/dl (32.0-37.0); MEAN CORPUSCULAR VOLUME 79.9 fl (82.0-101.0); MEAN PLATELET VOLUME 12.1 fl (7.4-10.4); MONOCYTE # 1.1 10^3/ul (0.3-0.9); MONOCYTES % 4.8 % (0.0-11.0); NEUTROPHIL # 20.9 10^3/ul (1.6-7.5); NEUTROPHILS % 89.7 % (39.0-77.0); PLATELET COUNT 155 10^3/UL (140-415); POSITIVE DIFF @See below; RED BLOOD COUNT 2.79 10^6/ul (4.70-6.10)
[2017-10-28] MEDS: LEVOTHYROXINE 125 MCG TAB PO (06:06)
[2017-10-28 06:35] LABS: ANION GAP 17 (8-16); BLOOD UREA NITROGEN 62 mg/dl (7-20); CALCIUM 7.1 mg/dl (8.4-10.2); CARBON DIOXIDE 25 mmol/L (21-31); CHLORIDE 102 mmol/L (97-110); CREATININE 4.68 mg/dl (0.61-1.24); GLUCOSE 199 mg/dl (70-220); MAGNESIUM 2.3 mg/dl (1.7-2.5); POTASSIUM 4.4 mmol/L (3.5-5.1); SODIUM 140 mmol/L (135-144)
[2017-10-28 07:30] LABS: OCCULT BLOOD STOOL NEGATIVE (NEGATIVE)
[2017-10-28 07:59] LABS: AADO2 Arterial 113.7 mmHg (7.0-24.0); Allen Test ACCEPTAB; Arterial COHb 0.2 % (0.0-3.0); Arterial Fraction of Oxyhgb 94.5 % (93.0-99.0); Arterial HCO3 25.8 mmol/L (22.0-26.0); Arterial MetHb 0.3 % (0.0-1.5); Arterial Total Hemglobin 8.4 g/dl (12.0-18.0); Arterial pCO2 36.9 mmhg (35-45); MODE NASAL CANNULA; Site Right Radial
[2017-10-28] MEDS: MEGESTROL (40 MG/ML) 10ML CUP PO (08:33)
[2017-10-28] MEDS: CLOPIDOGREL 75 MG TAB PO (08:33)
[2017-10-28] MEDS: LINAGLIPTIN 5 MG TABLET PO (08:34)
[2017-10-28] MEDS: SEVELAMER 800 MG TAB PO ×3 (08:34→17:26)
[2017-10-28] MEDS: ASPIRIN 81 MG TAB PO (08:34)
[2017-10-28] MEDS: FLUCONAZOLE 100 MG TAB PO (08:34)
[2017-10-28] MEDS: ALLOPURINOL 100 MG TAB PO (08:34)
[2017-10-28] MEDS: COLLAGENASE 30 GM TUBE TOP ×2 (08:35→08:36)
[2017-10-28] MEDS: DUTASTERIDE 0.5 MG CAP PO (08:35)
[2017-10-28] MEDS: HALOPERIDOL 1 MG TAB PO ×2 (08:48→20:59)
[2017-10-28] MEDS: INSULIN GLARGINE [LANtus] 3 ML PEN SC (14:04)
[2017-10-28] MEDS: CASPOFUNGIN 50 MG in SOD CHLORIDE 0.9% 250 ML IVPB (17:26)
[2017-10-28] MEDS: MEROPENEM 500MG/50 ML (PMX) 50 ML IVPB (20:59)
[2017-10-28] MEDS: TAMSULOSIN (SR) 0.4 MG CAP PO (20:59)
[2017-10-28] MEDS: ACETAMINOPHEN 325 MG TAB PO (21:00)
[2017-10-29] MEDS: ALBUTEROL/IPRATROPIUM (NEB) 3 ML AMP NEB ×6 (00:01→20:55)
[2017-10-29] MEDS: ACCU-CHEK XX (01:23)
[2017-10-29] MEDS: LANSOPRAZOLE 30 MG CAP NGT (05:15)
[2017-10-29] MEDS: LEVOTHYROXINE 125 MCG TAB PO (06:09)
[2017-10-29] MEDS: INSULIN ASPART [NOVOLOG] 3 ML PEN SC ×3 (06:14→17:50)
[2017-10-29 07:24] LABS: ADD MAN DIFF? NO
[2017-10-29 07:25] LABS: WHITE BLOOD COUNT 16.1 10^3/ul (4.8-10.8)
[2017-10-29 07:25] LABS: BASOPHILS % 0.1 % (0.0-2.0); EOSINOPHILS % 0.1 % (0.0-7.0); HEMOGLOBIN 7.8 g/dl (14.0-18.0); LYMPHOCYTES % 6.4 % (15.0-51.0); MEAN CORPUSCULAR HEMOGLOBIN 28.9 pg (29.0-33.0); MEAN CORPUSCULAR HGB CONC 35.5 g/dl (32.0-37.0); MEAN CORPUSCULAR VOLUME 81.5 fl (82.0-101.0); MEAN PLATELET VOLUME 12.3 fl (7.4-10.4); MONOCYTE # 1.1 10^3/ul (0.3-0.9); MONOCYTES % 6.6 % (0.0-11.0); NEUTROPHIL # 13.3 10^3/ul (1.6-7.5); PLATELET COUNT 140 10^3/UL (140-415); RED CELL DISTRIBUTION WIDTH 18.7 % (11.5-14.5)
[2017-10-29 07:34] LABS: ANION GAP 11 (8-16); BLOOD UREA NITROGEN 36 mg/dl (7-20); CALCIUM 7.3 mg/dl (8.4-10.2); CARBON DIOXIDE 31 mmol/L (21-31); CHLORIDE 102 mmol/L (97-110); CREATININE 2.78 mg/dl (0.61-1.24); GLUCOSE 173 mg/dl (70-220); POTASSIUM 4.3 mmol/L (3.5-5.1); SODIUM 140 mmol/L (135-144)
[2017-10-29 07:35] LABS: MAGNESIUM 2.1 mg/dl (1.7-2.5)
[2017-10-29 07:35] LABS: PHOSPHORUS 3.1 mg/dl (2.5-4.9)
[2017-10-29] MEDS: SEVELAMER 800 MG TAB PO ×3 (07:35→17:15)
[2017-10-29] MEDS: CLOPIDOGREL 75 MG TAB PO (08:34)
[2017-10-29] MEDS: LINAGLIPTIN 5 MG TABLET PO (08:34)
[2017-10-29] MEDS: ALLOPURINOL 100 MG TAB PO (08:34)
[2017-10-29] MEDS: ASPIRIN 81 MG TAB PO (08:34)
[2017-10-29] MEDS: COLLAGENASE 30 GM TUBE TOP ×2 (08:35)
[2017-10-29] MEDS: ACETAMINOPHEN 325 MG TAB PO ×2 (08:47→22:18)
[2017-10-29] MEDS: DUTASTERIDE 0.5 MG CAP PO (09:00)
[2017-10-29] MEDS: INSULIN GLARGINE [LANtus] 3 ML PEN SC (09:01)
[2017-10-29] MEDS: EPOETIN 10000 UNITS/1 ML INJ (ESRD) SC (17:22)
[2017-10-29] MEDS: CASPOFUNGIN 50 MG in SOD CHLORIDE 0.9% 250 ML IVPB (17:23)
[2017-10-29] MEDS: TAMSULOSIN (SR) 0.4 MG CAP PO (21:43)
[2017-10-29] MEDS: MEROPENEM 500MG/50 ML (PMX) 50 ML IVPB (21:45)
[2017-10-30] MEDS: INSULIN ASPART [NOVOLOG] 3 ML PEN SC ×5 (00:43→23:46)
[2017-10-30] MEDS: ALBUTEROL/IPRATROPIUM (NEB) 3 ML AMP NEB ×6 (01:04→20:39)
[2017-10-30] MEDS: ACCU-CHEK XX (01:39)
[2017-10-30] MEDS: HALOPERIDOL 1 MG TAB PO ×2 (06:09→23:39)
[2017-10-30] MEDS: LANSOPRAZOLE 30 MG CAP NGT (06:09)
[2017-10-30] MEDS: LEVOTHYROXINE 125 MCG TAB PO (06:09)
[2017-10-30 06:13] LABS: ADD MAN DIFF? NO
[2017-10-30 06:23] LABS: WHITE BLOOD COUNT 15.4 10^3/ul (4.8-10.8)
[2017-10-30 06:23] LABS: ABNORMAL IP MESSAGE 1; BASOPHILS % 0.2 % (0.0-2.0); EOSINOPHILS # 0.1 10^3/ul (0.0-0.5); EOSINOPHILS % 0.4 % (0.0-7.0); HEMATOCRIT 20.7 % (42.0-52.0); HEMOGLOBIN 7.3 g/dl (14.0-18.0); LYMPHOCYTES # 0.9 10^3/ul (0.8-2.9); LYMPHOCYTES % 5.7 % (15.0-51.0); MEAN CORPUSCULAR HEMOGLOBIN 28.5 pg (29.0-33.0); MEAN CORPUSCULAR HGB CONC 35.3 g/dl (32.0-37.0); MEAN CORPUSCULAR VOLUME 80.9 fl (82.0-101.0); MONOCYTES % 6.2 % (0.0-11.0); NEUTROPHIL # 12.7 10^3/ul (1.6-7.5); NEUTROPHILS % 82.1 % (39.0-77.0); PLATELET COUNT 150 10^3/UL (140-415); POSITIVE DIFF @See below; RED BLOOD COUNT 2.56 10^6/ul (4.70-6.10); RED CELL DISTRIBUTION WIDTH 18.7 % (11.5-14.5)
[2017-10-30 06:48] LABS: ANION GAP 16 (8-16); BLOOD UREA NITROGEN 54 mg/dl (7-20); CALCIUM 7.4 mg/dl (8.4-10.2); CARBON DIOXIDE 27 mmol/L (21-31); CHLORIDE 101 mmol/L (97-110); CREATININE 3.82 mg/dl (0.61-1.24); GLUCOSE 221 mg/dl (70-220); POTASSIUM 4.5 mmol/L (3.5-5.1); SODIUM 139 mmol/L (135-144)
[2017-10-30 07:31] LABS: MAGNESIUM 2.2 mg/dl (1.7-2.5)
[2017-10-30 07:31] LABS: PHOSPHORUS 4.1 mg/dl (2.5-4.9)
[2017-10-30] MEDS: INSULIN GLARGINE [LANtus] 3 ML PEN SC ×2 (08:30→21:04)
[2017-10-30] MEDS: COLLAGENASE 30 GM TUBE TOP ×2 (08:31)
[2017-10-30] MEDS: ASPIRIN 81 MG TAB PO (08:32)
[2017-10-30] MEDS: DUTASTERIDE 0.5 MG CAP PO (08:33)
[2017-10-30] MEDS: SEVELAMER 800 MG TAB PO ×3 (08:33→17:28)
[2017-10-30] MEDS: CLOPIDOGREL 75 MG TAB PO (08:33)
[2017-10-30] MEDS: ALLOPURINOL 100 MG TAB PO (08:33)
[2017-10-30] MEDS: LINAGLIPTIN 5 MG TABLET PO (08:33)
[2017-10-30] MEDS: CASPOFUNGIN 50 MG in SOD CHLORIDE 0.9% 250 ML IVPB (17:28)
[2017-10-30 19:11] LABS: PROCALCITONIN 1.12 ng/mL (<0.10)
[2017-10-30] MEDS: QUETIAPINE 25 MG TAB NGT (20:54)
[2017-10-30] MEDS: MEROPENEM 500MG/50 ML (PMX) 50 ML IVPB (20:59)
[2017-10-30] MEDS: TAMSULOSIN (SR) 0.4 MG CAP PO (21:02)
[2017-10-31] MEDS: ALBUTEROL/IPRATROPIUM (NEB) 3 ML AMP NEB ×6 (00:49→20:13)
[2017-10-31] MEDS: ACCU-CHEK XX (02:00)
[2017-10-31] MEDS: VANCOMYCIN 1.25 GM in SOD CHLORIDE 0.9% 250 ML IVPB (05:24)
[2017-10-31] MEDS: LANSOPRAZOLE 30 MG CAP NGT (05:24)
[2017-10-31] MEDS: HALOPERIDOL 1 MG TAB PO (05:24)
[2017-10-31] MEDS: LEVOTHYROXINE 125 MCG TAB PO (05:25)
[2017-10-31] MEDS: INSULIN ASPART [NOVOLOG] 3 ML PEN SC ×4 (05:32→23:34)
[2017-10-31 07:22] LABS: ABNORMAL IP MESSAGE 1; MEAN CORPUSCULAR HEMOGLOBIN 28.2 pg (29.0-33.0); MEAN CORPUSCULAR HGB CONC 34.5 g/dl (32.0-37.0); MEAN CORPUSCULAR VOLUME 81.6 fl (82.0-101.0); MEAN PLATELET VOLUME 12.2 fl (7.4-10.4); PLATELET COUNT 148 10^3/UL (140-415); POSITIVE DIFF @See below; RED BLOOD COUNT 2.45 10^6/ul (4.70-6.10); RED CELL DISTRIBUTION WIDTH 19.3 % (11.5-14.5)
[2017-10-31 07:22] LABS: WHITE BLOOD COUNT 14.4 10^3/ul (4.8-10.8)
[2017-10-31 07:29] LABS: ADD MAN DIFF? YES; HEMOGLOBIN 6.9 g/dl (14.0-18.0)
[2017-10-31 07:42] LABS: ALANINE AMINOTRANSFERASE 33 IU/L (13-69); ALBUMIN 2.2 g/dl (3.3-4.9); ALBUMIN/GLOBULIN RATIO 0.62; ALKALINE PHOSPHATASE 421 IU/L (42-121); ANION GAP 14 (8-16); ASPARTATE AMINO TRANSFERASE 19 IU/L (15-46); BILIRUBIN,INDIRECT 0.1 mg/dl (0-1.1); BILIRUBIN,TOTAL 0.3 mg/dl (0.2-1.3); BLOOD UREA NITROGEN 70 mg/dl (7-20); CALCIUM 7.3 mg/dl (8.4-10.2); CARBON DIOXIDE 28 mmol/L (21-31); CHLORIDE 101 mmol/L (97-110); CREATININE 4.84 mg/dl (0.61-1.24); GLUCOSE 151 mg/dl (70-220); POTASSIUM 4.6 mmol/L (3.5-5.1); SODIUM 138 mmol/L (135-144); TOTAL PROTEIN 5.7 g/dl (6.1-8.1)
[2017-10-31 07:45] LABS: MAGNESIUM 2.2 mg/dl (1.7-2.5)
[2017-10-31 07:45] LABS: PHOSPHORUS 4.2 mg/dl (2.5-4.9)
[2017-10-31] MEDS: COLLAGENASE 30 GM TUBE TOP ×2 (09:00→13:58)
[2017-10-31] MEDS: LINAGLIPTIN 5 MG TABLET PO (09:00)
[2017-10-31 09:30] LABS: ANISOCYTOSIS 3+ (0-0); BAND NEUTROPHILS #M 0.5 10^3/ul (0.0-0.6); BAND NEUTROPHILS % (M) 4 % (0-4); GIANT THROMBO% (M) 4 % (0-0); HYPOCHROMASIA 1+ (0-0); LYMPHOCYTES #M 0.7 10^3/ul (0.8-2.9); LYMPHOCYTES % (M) 5 % (15-51); MONOCYTE #M 0.7 10^3/ul (0.3-0.9); MONOCYTES % (M) 5 % (0-11); MYELOCYTES #M 0.4 10^3/ul (0.0-0.0); MYELOCYTES % (M) 3 % (0-0); POLYCHROMASIA 3+ (0-0); SEGMENTED NEUTROPHILS (M) % 83 % (39-77); SMUDGE%M 9 % (0-0)
[2017-10-31 10:00] LABS: IMMEDIATE SPIN CROSSMATCH 1 2
[2017-10-31] MEDS ORDERED: VANCOMYCIN 1.25 GM in SOD CHLORIDE 0.9% 250 ML IVPB (12:00)
[2017-10-31] MEDS: SEVELAMER 800 MG TAB PO ×3 (12:00→18:28)
[2017-10-31] MEDS: CLOPIDOGREL 75 MG TAB PO (13:53)
[2017-10-31] MEDS: DUTASTERIDE 0.5 MG CAP PO (13:53)
[2017-10-31] MEDS: ASPIRIN 81 MG TAB PO (13:54)
[2017-10-31] MEDS: ALLOPURINOL 100 MG TAB PO (13:55)
[2017-10-31] MEDS: INSULIN GLARGINE [LANtus] 3 ML PEN SC ×2 (13:56→23:31)
[2017-10-31 14:17] LABS: HEMATOCRIT 21.7 % (42.0-52.0)
[2017-10-31 14:19] LABS: HEMOGLOBIN 9.5 g/dl (14.0-18.0)
[2017-10-31] MEDS: CASPOFUNGIN 50 MG in SOD CHLORIDE 0.9% 250 ML IVPB (18:28)
[2017-10-31] MEDS: MEROPENEM 500MG/50 ML (PMX) 50 ML IVPB (20:34)
[2017-10-31] MEDS: QUETIAPINE 25 MG TAB NGT (20:35)
[2017-10-31] MEDS: TAMSULOSIN (SR) 0.4 MG CAP PO (20:35)
[2017-11-01] MEDS: ALBUTEROL/IPRATROPIUM (NEB) 3 ML AMP NEB ×6 (00:25→21:11)
[2017-11-01] MEDS: ACCU-CHEK XX (01:34)
[2017-11-01] MEDS: INSULIN ASPART [NOVOLOG] 3 ML PEN SC ×3 (05:26→18:00)
[2017-11-01] MEDS: LANSOPRAZOLE 30 MG CAP NGT (05:26)
[2017-11-01] MEDS: LEVOTHYROXINE 125 MCG TAB PO (05:27)
[2017-11-01 07:49] LABS: ABNORMAL IP MESSAGE 1; HEMATOCRIT 26.2 % (42.0-52.0); MEAN CORPUSCULAR HEMOGLOBIN 29.6 pg (29.0-33.0); MEAN CORPUSCULAR HGB CONC 34.4 g/dl (32.0-37.0); MEAN CORPUSCULAR VOLUME 86.2 fl (82.0-101.0); MEAN PLATELET VOLUME 12.3 fl (7.4-10.4); PLATELET COUNT 169 10^3/UL (140-415); POSITIVE DIFF @See below; RED BLOOD COUNT 3.04 10^6/ul (4.70-6.10); RED CELL DISTRIBUTION WIDTH 19.3 % (11.5-14.5)
[2017-11-01 08:00] LABS: ADD MAN DIFF? YES
[2017-11-01] MEDS: SEVELAMER 800 MG TAB PO ×3 (08:00→18:51)
[2017-11-01 08:11] LABS: MAGNESIUM 2.1 mg/dl (1.7-2.5)
[2017-11-01 08:11] LABS: PHOSPHORUS 3.8 mg/dl (2.5-4.9)
[2017-11-01 08:12] LABS: ANION GAP 11 (8-16); BLOOD UREA NITROGEN 40 mg/dl (7-20); CALCIUM 7.5 mg/dl (8.4-10.2); CARBON DIOXIDE 30 mmol/L (21-31); CHLORIDE 103 mmol/L (97-110); CREATININE 3.11 mg/dl (0.61-1.24); GLUCOSE 97 mg/dl (70-220); POTASSIUM 4.8 mmol/L (3.5-5.1); SODIUM 139 mmol/L (135-144)
[2017-11-01] MEDS: COLLAGENASE 30 GM TUBE TOP ×2 (08:59→09:00)
[2017-11-01] MEDS: ASPIRIN 81 MG TAB PO (09:00)
[2017-11-01] MEDS: LINAGLIPTIN 5 MG TABLET PO (09:00)
[2017-11-01] MEDS: ALLOPURINOL 100 MG TAB PO (09:00)
[2017-11-01] MEDS: DUTASTERIDE 0.5 MG CAP PO (09:00)
[2017-11-01] MEDS: INSULIN GLARGINE [LANtus] 3 ML PEN SC ×2 (09:01→21:49)
[2017-11-01] MEDS: LIDOCAINE 2% (SDV) 5 ML INJ (10:12)
[2017-11-01] MEDS: PROPOFOL 40 ML (10:12)
[2017-11-01] MEDS: CEFAZOLIN 1 GM/50 ML (PMX) 50 ML IVPB (10:14)
[2017-11-01] MEDS ORDERED: EPHEDrine SULFATE 50 MG/5 ML SYG (11:20)
[2017-11-01] MEDS ORDERED: EPHEDrine SULFATE 50 MG/5 ML SYG IV (11:30)
[2017-11-01] MEDS: DEXTROSE 5%-0.45% NACL 1,000 ML IV (12:59)
[2017-11-01] MEDS: CASPOFUNGIN 50 MG in SOD CHLORIDE 0.9% 250 ML IVPB (17:10)
[2017-11-01] MEDS: EPOETIN 10000 UNITS/1 ML INJ (ESRD) SC (17:10)
[2017-11-01] MEDS: MEROPENEM 500MG/50 ML (PMX) 50 ML IVPB (21:24)
[2017-11-01] MEDS: QUETIAPINE 25 MG TAB NGT (21:24)
[2017-11-01] MEDS: TAMSULOSIN (SR) 0.4 MG CAP PO (21:24)
[2017-11-02] MEDS: ALBUTEROL/IPRATROPIUM (NEB) 3 ML AMP NEB ×6 (01:14→21:46)
[2017-11-02] MEDS: ACCU-CHEK XX (02:00)
[2017-11-02] MEDS: DEXTROSE 50% 50 ML SYRINGE IV (03:21)
[2017-11-02] MEDS: INSULIN ASPART [NOVOLOG] 3 ML PEN SC ×4 (05:48→17:57)
[2017-11-02] MEDS: LANSOPRAZOLE 30 MG CAP NGT (05:48)
[2017-11-02] MEDS: LEVOTHYROXINE 125 MCG TAB PO (05:48)
[2017-11-02] MEDS: SEVELAMER 800 MG TAB PO ×3 (08:03→22:31)
[2017-11-02] MEDS: DUTASTERIDE 0.5 MG CAP PO (08:03)
[2017-11-02] MEDS: ASPIRIN 81 MG TAB PO (08:04)
[2017-11-02] MEDS: LINAGLIPTIN 5 MG TABLET PO (08:06)
[2017-11-02] MEDS: INSULIN GLARGINE [LANtus] 3 ML PEN SC ×2 (08:06→22:43)
[2017-11-02] MEDS: COLLAGENASE 30 GM TUBE TOP ×2 (08:07)
[2017-11-02] MEDS: ALLOPURINOL 100 MG TAB PO (08:12)
[2017-11-02 08:56] LABS: ADD MAN DIFF? NO
[2017-11-02 09:00] LABS: WHITE BLOOD COUNT 11.5 10^3/ul (4.8-10.8)
[2017-11-02 09:00] LABS: ABNORMAL IP MESSAGE 1; BASOPHILS % 0.2 % (0.0-2.0); EOSINOPHILS # 0.1 10^3/ul (0.0-0.5); HEMATOCRIT 27.4 % (42.0-52.0); HEMOGLOBIN 9.1 g/dl (14.0-18.0); LYMPHOCYTES # 0.9 10^3/ul (0.8-2.9); LYMPHOCYTES % 7.6 % (15.0-51.0); MEAN CORPUSCULAR HEMOGLOBIN 28.8 pg (29.0-33.0); MEAN CORPUSCULAR HGB CONC 33.2 g/dl (32.0-37.0); MEAN CORPUSCULAR VOLUME 86.7 fl (82.0-101.0); MEAN PLATELET VOLUME 11.5 fl (7.4-10.4); MONOCYTE # 0.9 10^3/ul (0.3-0.9); PLATELET COUNT 179 10^3/UL (140-415); POSITIVE DIFF @See below; RED BLOOD COUNT 3.16 10^6/ul (4.70-6.10); RED CELL DISTRIBUTION WIDTH 20.1 % (11.5-14.5)
[2017-11-02 09:18] LABS: PHOSPHORUS 4.2 mg/dl (2.5-4.9)
[2017-11-02 09:18] LABS: MAGNESIUM 2.1 mg/dl (1.7-2.5)
[2017-11-02 09:27] LABS: ANION GAP 14 (8-16); BLOOD UREA NITROGEN 48 mg/dl (7-20); CALCIUM 7.4 mg/dl (8.4-10.2); CARBON DIOXIDE 28 mmol/L (21-31); CHLORIDE 102 mmol/L (97-110); CREATININE 4.06 mg/dl (0.61-1.24); GLUCOSE 145 mg/dl (70-220); POTASSIUM 4.9 mmol/L (3.5-5.1); SODIUM 139 mmol/L (135-144)
[2017-11-02] MEDS: CASPOFUNGIN 50 MG in SOD CHLORIDE 0.9% 250 ML IVPB (22:26)
[2017-11-02] MEDS: BALSAM PERU/CASTOR OIL 60 GM TUBE TOP (22:30)
[2017-11-02] MEDS: QUETIAPINE 25 MG TAB NGT (22:31)
[2017-11-02] MEDS: TAMSULOSIN (SR) 0.4 MG CAP PO (22:31)
[2017-11-02] MEDS: MEROPENEM 500MG/50 ML (PMX) 50 ML IVPB (22:32)
[2017-11-03] MEDS: ALBUTEROL/IPRATROPIUM (NEB) 3 ML AMP NEB ×6 (00:56→20:03)
[2017-11-03] MEDS: INSULIN ASPART [NOVOLOG] 3 ML PEN SC ×4 (01:30→17:58)
[2017-11-03] MEDS: ACCU-CHEK XX (02:00)
[2017-11-03] MEDS: HALOPERIDOL 1 MG TAB PO ×2 (02:27→08:36)
[2017-11-03] MEDS: LEVOTHYROXINE 125 MCG TAB PO (06:10)
[2017-11-03] MEDS: LANSOPRAZOLE 30 MG CAP NGT (06:10)
[2017-11-03] MEDS: INSULIN GLARGINE [LANtus] 3 ML PEN SC ×2 (07:52→21:29)
[2017-11-03] MEDS: LINAGLIPTIN 5 MG TABLET PO (08:35)
[2017-11-03] MEDS: ASPIRIN 81 MG TAB PO (08:35)
[2017-11-03] MEDS: SEVELAMER 800 MG TAB PO ×3 (08:35→17:44)
[2017-11-03] MEDS: BALSAM PERU/CASTOR OIL 60 GM TUBE TOP ×2 (08:36→21:31)
[2017-11-03] MEDS: ALLOPURINOL 100 MG TAB PO (08:36)
[2017-11-03] MEDS: DUTASTERIDE 0.5 MG CAP PO (08:36)
[2017-11-03 09:23] LABS: ADD MAN DIFF? NO
[2017-11-03 09:30] LABS: BASOPHILS % 0.2 % (0.0-2.0); EOSINOPHILS # 0.1 10^3/ul (0.0-0.5); EOSINOPHILS % 0.7 % (0.0-7.0); HEMATOCRIT 25.5 % (42.0-52.0); HEMOGLOBIN 8.6 g/dl (14.0-18.0); LYMPHOCYTES # 0.9 10^3/ul (0.8-2.9); LYMPHOCYTES % 7.5 % (15.0-51.0); MEAN CORPUSCULAR HEMOGLOBIN 28.9 pg (29.0-33.0); MEAN CORPUSCULAR HGB CONC 33.7 g/dl (32.0-37.0); MEAN CORPUSCULAR VOLUME 85.6 fl (82.0-101.0); MEAN PLATELET VOLUME 11.6 fl (7.4-10.4); MONOCYTE # 0.9 10^3/ul (0.3-0.9); MONOCYTES % 7.2 % (0.0-11.0); NEUTROPHIL # 10.1 10^3/ul (1.6-7.5); PLATELET COUNT 201 10^3/UL (140-415); RED BLOOD COUNT 2.98 10^6/ul (4.70-6.10); RED CELL DISTRIBUTION WIDTH 19.8 % (11.5-14.5)
[2017-11-03 09:30] LABS: WHITE BLOOD COUNT 12.4 10^3/ul (4.8-10.8)
[2017-11-03 09:45] LABS: ANION GAP 12 (8-16); BLOOD UREA NITROGEN 33 mg/dl (7-20); CALCIUM 7.3 mg/dl (8.4-10.2); CARBON DIOXIDE 30 mmol/L (21-31); CHLORIDE 101 mmol/L (97-110); CREATININE 3.07 mg/dl (0.61-1.24); GLUCOSE 146 mg/dl (70-220); POTASSIUM 4.1 mmol/L (3.5-5.1); SODIUM 139 mmol/L (135-144)
[2017-11-03 10:13] LABS: MAGNESIUM 1.9 mg/dl (1.7-2.5)
[2017-11-03 10:13] LABS: PHOSPHORUS 3.1 mg/dl (2.5-4.9)
[2017-11-03] MEDS: CASPOFUNGIN 50 MG in SOD CHLORIDE 0.9% 250 ML IVPB (17:44)
[2017-11-03] MEDS: EPOETIN 10000 UNITS/1 ML INJ (ESRD) SC (17:54)
[2017-11-03] MEDS: MEROPENEM 500MG/50 ML (PMX) 50 ML IVPB (21:20)
[2017-11-03] MEDS: TAMSULOSIN (SR) 0.4 MG CAP PO (21:21)
[2017-11-03] MEDS: QUETIAPINE 25 MG TAB NGT (21:22)
[2017-11-04] MEDS: INSULIN ASPART [NOVOLOG] 3 ML PEN SC ×4 (00:35→17:23)
[2017-11-04] MEDS: ALBUTEROL/IPRATROPIUM (NEB) 3 ML AMP NEB ×6 (00:39→20:31)
[2017-11-04] MEDS: ACCU-CHEK XX (02:00)
[2017-11-04 05:32] LABS: ADD MAN DIFF? NO
[2017-11-04 05:41] LABS: BASOPHILS % 0.2 % (0.0-2.0); EOSINOPHILS # 0.1 10^3/ul (0.0-0.5); HEMATOCRIT 25.2 % (42.0-52.0); HEMOGLOBIN 8.5 g/dl (14.0-18.0); LYMPHOCYTES # 0.9 10^3/ul (0.8-2.9); LYMPHOCYTES % 6.6 % (15.0-51.0); MEAN CORPUSCULAR HEMOGLOBIN 28.5 pg (29.0-33.0); MEAN CORPUSCULAR HGB CONC 33.7 g/dl (32.0-37.0); MEAN CORPUSCULAR VOLUME 84.6 fl (82.0-101.0); MEAN PLATELET VOLUME 11.6 fl (7.4-10.4); MONOCYTES % 7.2 % (0.0-11.0); NEUTROPHIL # 11.2 10^3/ul (1.6-7.5); PLATELET COUNT 218 10^3/UL (140-415); RED BLOOD COUNT 2.98 10^6/ul (4.70-6.10); RED CELL DISTRIBUTION WIDTH 19.9 % (11.5-14.5)
[2017-11-04 05:41] LABS: WHITE BLOOD COUNT 13.5 10^3/ul (4.8-10.8)
[2017-11-04 05:59] LABS: PHOSPHORUS 3.5 mg/dl (2.5-4.9)
[2017-11-04 06:03] LABS: VANCOMYCIN,TROUGH 12.2 ug/ml (10.0-20.0)
[2017-11-04 06:05] LABS: ANION GAP 13 (8-16); BLOOD UREA NITROGEN 47 mg/dl (7-20); CALCIUM 7.5 mg/dl (8.4-10.2); CARBON DIOXIDE 28 mmol/L (21-31); CHLORIDE 102 mmol/L (97-110); CREATININE 3.69 mg/dl (0.61-1.24); GLUCOSE 163 mg/dl (70-220); POTASSIUM 4.3 mmol/L (3.5-5.1); SODIUM 139 mmol/L (135-144)
[2017-11-04] MEDS: LEVOTHYROXINE 125 MCG TAB PO (06:40)
[2017-11-04] MEDS: LANSOPRAZOLE 30 MG CAP NGT (06:40)
[2017-11-04] MEDS: VANCOMYCIN 1.25 GM in SOD CHLORIDE 0.9% 250 ML IVPB (06:40)
[2017-11-04] MEDS: ASPIRIN 81 MG TAB PO (08:45)
[2017-11-04] MEDS: ALLOPURINOL 100 MG TAB PO (08:45)
[2017-11-04] MEDS: HALOPERIDOL 1 MG TAB PO (08:45)
[2017-11-04] MEDS: SEVELAMER 800 MG TAB PO ×3 (08:45→17:22)
[2017-11-04] MEDS: LINAGLIPTIN 5 MG TABLET PO (08:45)
[2017-11-04] MEDS: INSULIN GLARGINE [LANtus] 3 ML PEN SC (08:47)
[2017-11-04] MEDS: DUTASTERIDE 0.5 MG CAP PO (09:00)
[2017-11-04] MEDS: BALSAM PERU/CASTOR OIL 60 GM TUBE TOP ×2 (09:07→21:03)
[2017-11-04 09:22] LABS: OCCULT BLOOD STOOL POSITIVE (NEGATIVE)
[2017-11-04] MEDS: DEXTROSE 50% 50 ML SYRINGE IV ×2 (16:45→16:59)
[2017-11-04] MEDS: CASPOFUNGIN 50 MG in SOD CHLORIDE 0.9% 250 ML IVPB (16:52)
[2017-11-04] MEDS: QUETIAPINE 25 MG TAB NGT (21:00)
[2017-11-04] MEDS: TAMSULOSIN (SR) 0.4 MG CAP PO (21:02)
[2017-11-04] MEDS: MEROPENEM 500MG/50 ML (PMX) 50 ML IVPB (21:02)
[2017-11-05] MEDS ORDERED: CA CHLORIDE 10% 10 ML SYRINGE
[2017-11-05] MEDS ORDERED: EPINEPHrine 0.1 MG/ML SYG
[2017-11-05] MEDS ORDERED: NA BICARBONATE 8.4% 50 ML SYG
[2017-11-05] MEDS: ALBUTEROL/IPRATROPIUM (NEB) 3 ML AMP NEB ×2 (00:49→00:50)
[2017-11-05] MEDS: ACCU-CHEK XX (02:00)
== END 2017-11-05 05:00 | disposition expired | DRG 871 ==
LOC: MS2 10-13 01:27 → MS4 10-26 16:15 → MS2 10-20 15:05 → ICU 10-26 16:45 → E/R 17:52 → MS2 10-16 21:34
PROC: 0DH63UZ Insertion of Feeding Device into Stomach, Percutaneous Approach (ICD-10-PCS; principal; 2017-11-01 09:35)
PROC: 02HV33Z Insertion of Infusion Device into Superior Vena Cava, Percutaneous Approach (ICD-10-PCS; 2017-11-01 09:35)
PROC: 30233N1 Transfusion of Nonautologous Red Blood Cells into Peripheral Vein, Percutaneous Approach (ICD-10-PCS; 2017-11-01 09:35)
PROC: 5A12012 Performance of Cardiac Output, Single, Manual (ICD-10-PCS; 2017-11-01 09:35)
PROC: 5A2204Z Restoration of Cardiac Rhythm, Single (ICD-10-PCS; 2017-11-01 09:35)
PROC: 0BH17EZ Insertion of Endotracheal Airway into Trachea, Via Natural or Artificial Opening (ICD-10-PCS; 2017-11-01 09:35)
DX: A41.9 Sepsis, unspecified organism (principal); J85.0 Gangrene and necrosis of lung; J69.0 Pneumonitis due to inhalation of food and vomit; J96.00 Acute respiratory failure, unspecified whether with hypoxia or hypercapnia; I46.9 Cardiac arrest, cause unspecified; R64 Cachexia; G92 Toxic encephalopathy; J90 Pleural effusion, not elsewhere classified; N18.6 End stage renal disease; D69.6 Thrombocytopenia, unspecified; L89.153 Pressure ulcer of sacral region, stage 3; E46 Unspecified protein-calorie malnutrition; I12.0 Hypertensive chronic kidney disease with stage 5 chronic kidney disease or end stage renal disease; Z68.1 Body mass index [BMI] 19.9 or less, adult; E11.22 Type 2 diabetes mellitus with diabetic chronic kidney disease; I80.8 Phlebitis and thrombophlebitis of other sites; I65.21 Occlusion and stenosis of right carotid artery; I25.10 Atherosclerotic heart disease of native coronary artery without angina pectoris; I80.02 Phlebitis and thrombophlebitis of superficial vessels of left lower extremity; I49.01 Ventricular fibrillation; N40.0 Benign prostatic hyperplasia without lower urinary tract symptoms; D50.9 Iron deficiency anemia, unspecified; E03.9 Hypothyroidism, unspecified; E11.65 Type 2 diabetes mellitus with hyperglycemia; E83.9 Disorder of mineral metabolism, unspecified; M10.9 Gout, unspecified; F01.50 Vascular dementia, unspecified severity, without behavioral disturbance, psychotic disturbance, mood disturbance, and anxiety; F41.9 Anxiety disorder, unspecified; F03.90 Unspecified dementia, unspecified severity, without behavioral disturbance, psychotic disturbance, mood disturbance, and anxiety; H40.9 Unspecified glaucoma; R62.7 Adult failure to thrive; R13.10 Dysphagia, unspecified; R65.20 Severe sepsis without septic shock; R04.1 Hemorrhage from throat; Z99.2 Dependence on renal dialysis; Z95.1 Presence of aortocoronary bypass graft; Z91.81 History of falling
CPT/HCPCS: 36415; 36430; 36569; 36600; 70450; 71045; 71250; 71260; 74018; 74177; 76700; 76937; 80048; 80053; 80061; 80202; 81001; 82140; 82270; 82803; 82962; 83036; 83540; 83605; 83615; 83690; 83735; 84100; 84145; 84443; 84484; 85014; 85018; 85025; 85610; 85730; 86480; 86635; 86803; 86850; 86900; 86901; 86920; 87040; 87070; 87081; 87116; 87340; 89220; 90935; 92526; 92610; 92950; 93005; 93880; 93971; 94640; 94664; 96372; 97110; 97162; 97530; 99285-25